=== PATIENT | male | born 1960 ===

== ENCOUNTER 2017-01-13 22:22 | Emergency (ER) | payer OTHER ==
[2017-01-13] MEDS ORDERED: Albuterol-Ipratrop 3 mg / 0.5 (3 ml) UD ONE (22:37)
[2017-01-13] MEDS ORDERED: Albuterol-Ipratrop 3 mg / 0.5 (3 ml) UD INH STA (22:42)
[2017-01-13 23:07] LABS: RBC URINE < 1 /hpf (0-3); URINE BILIRUBIN NEGATIVE (NEGATIVE); URINE BLOOD NEGATIVE (NEGATIVE); URINE COLOR Yellow (YELLOW); URINE GLUCOSE (UA) NORMAL (Normal); URINE KETONE NEGATIVE (NEGATIVE); URINE LEUKOCYTE ESTERASE NEG Leu/uL (Negative); URINE PROTEIN NEGATIVE (NEGATIVE); URINE UROBILINOGEN NORMAL mg/dL (0.2-1.0); WBC URINE 1 /hpf (0-5)
[2017-01-13 23:37] LABS: BASO # 0.1 K/uL (0.0-0.2); EOS # 0.1 K/uL (0.0-0.7); HEMATOCRIT 40.3 % (35.0-51.0); LYMPH # 1.5 K/uL (1.0-4.3); LYMPH % 23.3 % (20.0-40.0); MEAN CORPUSCULAR HEMOGLOBIN 29.8 pg (27.0-31.0); MEAN CORPUSCULAR HGB CONC 33.8 g/dL (33.0-37.0); MEAN PLATELET VOLUME 8.4 fL (7.2-11.7); MONO # 0.4 K/uL (0.0-0.8); RED CELL DISTRIBUTION WIDTH 14.1 % (11.5-14.5); WHITE BLOOD COUNT 6.4 K/uL (4.8-10.8)
[2017-01-13 23:44] LABS: CHLORIDE 106 mmol/L (98-107); POTASSIUM 4.3 mmol/L (3.6-5.2); SODIUM 140 mmol/L (132-148)
[2017-01-13 23:46] LABS: ALB/GLOB RATIO 1.5 (1.0-2.1); ALKALINE PHOSPHATASE 69 U/L (38-126); AST/SGOT 31 U/L (17-59); BILIRUBIN,TOTAL 0.4 mg/dL (0.2-1.3); BLOOD UREA NITROGEN 21 mg/dL (9-20); CARBON DIOXIDE 23 mmol/L (22-30); GFR AFRICAN-AMERICAN > 60; TOTAL PROTEIN 6.7 g/dL (6.3-8.3)
[2017-01-13 23:47] LABS: ALT/SGPT 30 U/L (21-72); CALCIUM 8.5 mg/dl (8.6-10.4); GLUCOSE,RANDOM 130 mg/dL (75-110)
[2017-01-13 23:52] LABS: INR 3.6
[2017-01-14] MEDS ORDERED: Iodixanol 320 MG/ML 100 ML BOTTLE IV ONE (00:41)
--- NOTE | 2017-01-14 00:41 | C.PDOC ---
History Of Present Illness Pt c/p right upper back pain radiating to right chest. Time Seen by Provider: 01/13/17 23:05 Chief Complaint (Nursing): Back Pain History Per: Patient Onset/Duration Of Symptoms: Hrs (since waking up this morning) Current Symptoms Are (Timing): Still Present Quality Of Discomfort: "Pain" Severity: Moderate Exacerbating Factor(s): Turning, Movement, Other (deep breathing) Additional History Per: Prior Records Past Medical History Reviewed: Historical Data, Nursing Documentation, Vital Signs Vital Signs: Last Vital Signs Temp 98.1 F 01/13/17 22:34 Pulse 78 01/13/17 22:34 Resp 21 01/13/17 22:34 BP 121/93 H 01/13/17 22:34 Pulse Ox 97 01/14/17 00:41 - Medical History PMH: Asthma, HTN, Hypercholesterolemia, Kidney Stones Other Surgeries: Mechanical heart valve. Family History: States: Unknown Family Hx - Social History Hx Tobacco Use: No Hx Alcohol Use: No Hx Substance Use: No - Immunization History Hx Tetanus Toxoid Vaccination: Yes Hx Influenza Vaccination: Yes Hx Pneumococcal Vaccination: Yes Review Of Systems Except As Marked, All Systems Reviewed And Found Negative. Constitutional: Negative for: Fever, Weakness Cardiovascular: Positive for: Chest Pain (right) Respiratory: Negative for: Hemoptysis Gastrointestinal: Negative for: Vomiting Genitourinary: Negative for: Dysuria Musculoskeletal: Positive for: Back Pain (right upper). Negative for: Neck Pain , Leg Pain Skin: Negative for: Rash Neurological: Negative for: Weakness, Numbness, Seizures, Altered Mental Status Physical Exam - Physical Exam Appears: Non-toxic, No Acute Distress Skin: Normal Color, Warm, Dry, No Rash Head: Atraumatic, Normacephalic Eye(s): bilateral: PERRL, EOMI Neck: Normal ROM, Supple Cardiovascular: Rhythm Regular Respiratory: Normal Breath Sounds, No Accessory Muscle Use Gastrointestinal/Abdominal: Soft, No Tenderness Back: No CVA Tenderness, No Vertebral Tenderness, Paraspinal Tenderness (right upper) Extremity: Normal ROM, No Pedal Edema, No Calf Tenderness Neurological/Psych: Oriented x3, Normal Motor, Normal Sensation ED Course And Treatment - Laboratory Results Result Diagrams: 01/13/17 23:33 01/13/17 23:33 ECG: Interpreted By Me, Viewed By Me ECG Rhythm: Sinus Rhythm, R BBB, Nonspecific Changes Rate From EC O2 Sat by Pulse Oximetry: 97 Pulse Ox Interpretation: Normal - Radiology CXR: Interpreted by Me, Viewed By Me CXR Interpretation: Yes: No Acute Disease Disposition - Disposition Disposition Time: 00:52 Condition: FAIR - Clinical Impression Clinical Impression: Back pain with radiation Physician Patient Turnover Patient Signed Over To: Saundra Bettencourt Handoff Comments: to f/up CTA of chest and reassess pt.
[2017-01-14 01:54] VITALS: BP 114/71; PULSE 60; RESP 18; TEMP 97.6; O2SAT 96
--- NOTE | 2017-01-14 01:55 | CT ---
EXAM: CT Angiography Chest With Intravenous Contrast CLINICAL HISTORY: 56 years old, male; Pain; Chest pain; Right-sided chest pain; Prior surgery; Surgery date: 6+ months; Additional info: Right chest/back pain, R/O pe. TECHNIQUE: Axial computed tomographic angiography images of the chest with intravenous contrast using pulmonary embolism protocol. This CT exam was performed using one or more of the following dose reduction techniques: automated exposure control, adjustment of the mA and/or kV according to patient size, and/or use of iterative reconstruction technique. MIP reconstructed images were created and reviewed. Coronal and sagittal reformatted images were created and reviewed. CONTRAST: 100 mL of [id number] administered intravenously. COMPARISON: CT - ANGIO CHEST PE PROTOCOL 10/06/2016 1:57:49 AM FINDINGS: Pulmonary arteries: No evidence for acute pulmonary embolism. Aorta: Thoracic aorta is atherosclerotic and tortuous without aneurysm. Lungs: Mild biapical scarring. Mild dependent and bibasilar atelectasis. No mass. Pleural space: Lungs are free of dense consolidation, pleural effusion or pneumothorax. Heart: There is a prosthetic aortic valve. There is minimal coronary artery calcification. The heart is not enlarged. No significant pericardial effusion. No evidence of RV dysfunction. Mediastinum: The esophagus is normal. Thyroid: Thyroid is normal in size and position. Bones/joints: There are sternal wires consistent with previous sternotomy incision. There are mild degenerative changes present. No acute fracture. No dislocation. Soft tissues: Unremarkable. Lymph nodes: There is no axillary adenopathy. No mediastinal or hilar adenopathy. Upper abdomen: Scans through the upper abdomen demonstrate no definite acute abnormalities. IMPRESSION: 1. No evidence for acute pulmonary embolism. 2. Lungs are free of dense consolidation, pleural effusion or pneumothorax.
--- NOTE | 2017-01-14 10:05 | RAD ---
HISTORY: sob, chest pain COMPARISON: 11/25/2016 TECHNIQUE: Chest PA and lateral FINDINGS: LUNGS: Patchy increased markings at the left lung base suggestive for infiltrate and or atelectasis. Diffuse increased interstitial lung markings. Upper lobe granulomatous changes. Small nodular density at the left lung apex. PLEURA: No significant pleural effusion identified. No pneumothorax apparent. CARDIOVASCULAR: Status post median sternotomy. Heart size within normal limits. Prior valve replacement. OSSEOUS STRUCTURES: No significant abnormalities. VISUALIZED UPPER ABDOMEN: Normal. OTHER FINDINGS: None. IMPRESSION: Patchy increased markings at the left lung base suggestive for infiltrate and or atelectasis. Diffuse increased interstitial lung markings. Upper lobe granulomatous changes. Small nodular density at the left lung apex.
--- NOTE | 2017-01-22 14:36 | CARD ---
APPROVED REPORT EKG Measurement Heart [id number] [place] 186P21 [id number] <Conclusion> Normal sinus rhythm Right bundle branch block Lateral infarct, age undetermined Possible Inferior infarct, age undetermined Abnormal ECG
== END 2017-01-14 01:53 | disposition home or self-care (01) ==
LOC: C.ER 22:22
DX: M54.89 Other dorsalgia (principal)
CPT/HCPCS: 71020; 80053; 81001; 83690; 83880; 84484; 85025; 85610; 85730; 94640; 96374; 99284; C9113; Q9967

== ENCOUNTER 2017-01-18 15:11 | Emergency (ER) | payer OTHER ==
[2017-01-18 15:25] VITALS: BMI 28.3
[2017-01-18 15:28] VITALS: TEMP 98.3
--- NOTE | 2017-01-18 16:51 | C.PDOC ---
History Of Present Illness The patient, a 56 y/o male whose PMHx includes Asthma, presents to the ED for evaluation of sore throat, nasal congestion, cough productive of clear sputum which gradually developed over the past 2 days. Patient denies high fever, chills, drooling, chest pain, shortness of breath, wheezing, abd. pain, N/V/D, denies recent travel or sick contact. Ambulate to Ed for evaluation, not in any apparent distress. Time Seen by Provider: 01/18/17 15:28 Chief Complaint (Nursing): Cough, Cold, Congestion History Per: Patient History/Exam Limitations: no limitations Onset/Duration Of Symptoms: Days (2), Gradual Current Symptoms Are (Timing): Still Present Location Of Pain: Throat Associated Symptoms: Cough, Sputum (clear ), Nasal Congestion. denies: Fever, Chills, Nausea, Vomiting, Diarrhea Ear Symptoms: Bilateral: None Additional History Per: Patient Past Medical History Reviewed: Historical Data, Nursing Documentation, Vital Signs Vital Signs: Last Vital Signs Temp 98.3 F 01/18/17 15:26 Pulse 72 01/18/17 16:59 Resp 18 01/18/17 16:59 BP 124/75 01/18/17 16:59 Pulse Ox 100 01/18/17 17:44 - Medical History PMH: Asthma, HTN, Hypercholesterolemia, Kidney Stones, Mitral Valve Prolapse ( replacement), Chronic Kidney Disease Surgical History: CABG Family History: States: Unknown Family Hx - Social History Hx Tobacco Use: No Hx Alcohol Use: No Hx Substance Use: No - Immunization History Hx Tetanus Toxoid Vaccination: Yes Hx Influenza Vaccination: Yes Hx Pneumococcal Vaccination: Yes Review Of Systems Except As Marked, All Systems Reviewed And Found Negative. Constitutional: Negative for: Fever, Chills ENT: Positive for: Nose Congestion, Throat Pain. Negative for: Other (no drooling ) Cardiovascular: Negative for: Chest Pain Respiratory: Positive for: Cough, Sputum (clear ). Negative for: Shortness of Breath, Wheezing Physical Exam - Physical Exam Appears: Well, Non-toxic, No Acute Distress Skin: Normal Color, Warm, Dry, No Rash Eye(s): bilateral: Normal Inspection Nose: Discharge (B/L nasal congestion with scant clear rhinorhea) Oral Mucosa: Moist, No Drooling Throat: Normal, No Erythema, No Exudate, No Drooling Neck: Normal, Normal ROM, Supple Cardiovascular: Rhythm Regular Respiratory: No Decreased Breath Sounds, No Stridor, Wheezing (scattered Right base wheezing, BS equal B/L.) Gastrointestinal/Abdominal: Soft, No Tenderness, No Distention, No Guarding, No Rebound Back: No CVA Tenderness Extremity: Normal ROM, No Pedal Edema, No Deformity Neurological/Psych: Oriented x3, Normal Speech ED Course And Treatment O2 Sat by Pulse Oximetry: 100 (on RA) Pulse Ox Interpretation: Normal Progress Note: Patient received Tessalon Perles PO, Zithromax PO, and prednisone PO. On re-eval, pt is afebrile, hemodynamicaly stable. NOn-toxic. Tolerate Po well in Ed. PulseOx 100% RA. Neck: (-) meningeal sign. ENT: no acute findings. Lungs: CTA B/L, BS equal B/L. ABd: benign. Pt has clinical findings c/w acute bronchitis. Pt advised. ref. to F/u with PMD In 2-3 days for re-eval. return if any new changes. Disposition Counseled Patient/Family Regarding: Diagnosis, Need For Followup, Rx Given - Disposition Referrals: Marisol Murphy MD [Staff Provider] - Disposition: HOME/ ROUTINE Disposition Time: 16:10 Condition: STABLE Additional Instructions: Encourage fluids take medication as prescribed Follow up wit PMD In 2-3 days for re-evaluation. Return to ED if any worsening or new changes. 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 - Scribe Statement The provider has reviewed the documentation as recorded by the Scribe (Cleopatra Galloway) All medical record entries made by the Scribe were at my direction and personally dictated by me. I have reviewed the chart and agree that the record accurately reflects my personal performance of the history, physical exam, medical decision making, and the department course for this patient. I have also personally directed, reviewed, and agree with the discharge instructions and disposition.
[2017-01-18 17:00] VITALS: BP 124/75; PULSE 72; RESP 18
[2017-01-18 17:43] VITALS: O2SAT 100
== END 2017-01-18 17:00 | disposition home or self-care (01) ==
LOC: C.ER 15:11
DX: J40 Bronchitis, not specified as acute or chronic (principal)

== ENCOUNTER 2017-01-20 21:10 | Emergency (ER) | payer OTHER ==
[2017-01-20 21:10] VITALS: BMI 31.4
[2017-01-20 21:21] VITALS: O2SAT 98
--- NOTE | 2017-01-20 21:26 | C.PDOC ---
History Of Present Illness Patient presents to the emergency room with complaints of a nonproductive cough and congestion for a few days. Patient reports that he was given medications at a clinic which have not helped. Patient states that he has been unable to sleep due to the cough. Patient denies fever, chills, nausea, vomiting, diarrhea, or any other complaints. Time Seen by Provider: 01/20/17 21:25 Chief Complaint (Nursing): Cough, Cold, Congestion History Per: Patient History/Exam Limitations: no limitations Onset/Duration Of Symptoms: Days Current Symptoms Are (Timing): Still Present Location Of Pain: None Sick Contacts (Context): None Associated Symptoms: Cough, Nasal Congestion. denies: Fever, Chills, Sputum, Nausea, Vomiting, Diarrhea Ear Symptoms: Bilateral: None Severity: Moderate Pain Scale Rating Of: 4 Recent travel outside of the [place]: No Past Medical History Reviewed: Historical Data, Nursing Documentation, Vital Signs Vital Signs: Last Vital Signs Temp 98.1 F 01/21/17 00:18 Pulse 70 01/21/17 00:18 Resp 18 01/21/17 00:18 BP 139/85 01/21/17 00:18 Pulse Ox 98 01/21/17 00:18 - Medical History PMH: Asthma, HTN, Hypercholesterolemia, Kidney Stones, Mitral Valve Prolapse ( replacement), Chronic Kidney Disease Surgical History: CABG Family History: States: Unknown Family Hx - Social History Hx Tobacco Use: No Hx Alcohol Use: No Hx Substance Use: No - Immunization History Hx Tetanus Toxoid Vaccination: Yes Hx Influenza Vaccination: Yes Hx Pneumococcal Vaccination: Yes Review Of Systems Constitutional: Negative for: Fever, Chills ENT: Positive for: Nose Congestion Respiratory: Positive for: Cough. Negative for: Sputum Gastrointestinal: Negative for: Nausea, Vomiting, Diarrhea Physical Exam - Physical Exam Appears: Non-toxic Skin: Warm, Dry Eye(s): bilateral: Normal Inspection Throat: No Erythema, No Exudate Neck: Normal ROM, No Midline Cervical Tenderness, No Paracervical Tenderness, Supple Cardiovascular: Rhythm Regular Respiratory: Rhonchi (Scattered rhonchi), Wheezing (Diffuse), Other ("Hacking" cough) Gastrointestinal/Abdominal: Soft, No Tenderness, No Guarding, No Rebound Extremity: Normal ROM, No Tenderness Neurological/Psych: Oriented x3, Normal Speech, Normal Cognition ED Course And Treatment - Laboratory Results Result Diagrams: 01/20/17 22:02 01/20/17 22:02 ECG: Interpreted By Me, Viewed By Me ECG Rhythm: Sinus Rhythm (64), R BBB, Nonspecific Changes O2 Sat by Pulse Oximetry: 98 Pulse Ox Interpretation: Normal - Radiology CXR: Interpreted by Me, Viewed By Me CXR Interpretation: Yes: Other (cabg, mvr, unchanged from 01/18/17). No: Infiltrates, Fracture, Pnemothorax Progress Note: blood work, nebs, cxr, Reevaluation Time: 01:08 Reassessment Condition: Improved Medical Decision Making Medical Decision Making: Upon provider reevaluation patient is feeling better, is medically stable, and requires no further treatment in the ED at this time. Patient will be discharged home with Rx for phenergan with codeine . Counseling was provided and all questions were answered regarding diagnosis and need for follow up with the referred clinic. There is agreement to discharge plan. Return if symptoms persist or worsen. Disposition Counseled Patient/Family Regarding: Studies Performed, Diagnosis, Need For Followup, Rx Given - Disposition Referrals: Marisol Murphy MD [Staff Provider] - Disposition: HOME/ ROUTINE Disposition Time: 21:25 Condition: FAIR Additional Instructions: Please return of symptoms recur Prescriptions: Promethazine/Codeine [Codeine/Promethazine 10 MG/5 Ml-6.25 MG/5 Ml] 5 ml PO QID #200 [facility] Instructions: Upper Respiratory Infection (ED) - Clinical Impression Clinical Impression: Upper respiratory infection - Scribe Statement The provider has reviewed the documentation as recorded by the Aiden Arevalo Provider Scribe Attestation: All medical record entries made by the Ermaibsydea were at my direction and personally dictated by me. I have reviewed the chart and agree that the record accurately reflects my personal performance of the history, physical exam, medical decision making, and the department course for this patient. I have also personally directed, reviewed, and agree with the discharge instructions and disposition.
[2017-01-20] MEDS ORDERED: Sodium Chloride 0.9% 1,000 ML IV ONE (21:28)
[2017-01-20] MEDS ORDERED: Promethazine/Cod 6.25mg-10mg/5ml Syr UD PO STA (21:28)
[2017-01-20] MEDS: Albuterol-Ipratrop 3 mg / 0.5 (3 ml) UD IH SCH ×3 (21:30→21:55)
[2017-01-20] MEDS ORDERED: Albuterol-Ipratrop 3 mg / 0.5 (3 ml) UD ONE (21:41)
[2017-01-20] MEDS ORDERED: Promethazine/Cod 6.25mg-10mg/5ml Syr UD ONE (21:41)
[2017-01-20] MEDS ORDERED: Sodium Chloride 0.9% 1,000 ML ONE (21:41)
[2017-01-20 22:04] LABS: BASO % 0.4 % (0.0-2.0); EOS % 0.6 % (0.0-4.0); HEMATOCRIT 40.8 % (35.0-51.0); LYMPH # 1.5 K/uL (1.0-4.3); LYMPH % 17.3 % (20.0-40.0); MEAN CELL VOLUME 88.6 fL (80.0-94.0); MEAN CORPUSCULAR HEMOGLOBIN 29.8 pg (27.0-31.0); MEAN CORPUSCULAR HGB CONC 33.6 g/dL (33.0-37.0); MEAN PLATELET VOLUME 8.4 fL (7.2-11.7); MONO # 0.7 K/uL (0.0-0.8); MONO % 8.1 % (0.0-10.0); RED CELL DISTRIBUTION WIDTH 14.3 % (11.5-14.5); WHITE BLOOD COUNT 8.5 K/uL (4.8-10.8)
[2017-01-20 22:12] LABS: CHLORIDE 105 mmol/L (98-107); SODIUM 137 mmol/L (132-148)
[2017-01-20 22:13] LABS: POTASSIUM 3.4 mmol/L (3.6-5.2)
[2017-01-20 22:15] LABS: ALB/GLOB RATIO 1.4 (1.0-2.1); ALKALINE PHOSPHATASE 76 U/L (38-126); AST/SGOT 37 U/L (17-59); BILIRUBIN,TOTAL 0.3 mg/dL (0.2-1.3); BLOOD UREA NITROGEN 24 mg/dL (9-20); CARBON DIOXIDE 19 mmol/L (22-30); GFR AFRICAN-AMERICAN > 60; TOTAL PROTEIN 6.7 g/dL (6.3-8.3)
[2017-01-20 22:16] LABS: ALT/SGPT 40 U/L (21-72); CALCIUM 8.2 mg/dl (8.6-10.4); GLUCOSE,RANDOM 128 mg/dL (75-110)
[2017-01-21 00:19] VITALS: BP 139/85; PULSE 70; RESP 18; TEMP 98.1
[2017-01-21] MEDS ORDERED: Promethazine/Cod 6.25mg-10mg/5ml Syr UD ONE (01:16)
[2017-01-21] MEDS ORDERED: Promethazine/Cod 6.25mg-10mg/5ml Syr UD PO STA (01:17)
--- NOTE | 2017-01-21 07:26 | RAD ---
HISTORY: SOB COMPARISON: Comparison is made to the previous study dated 01/13/2017 TECHNIQUE: Chest PA and lateral FINDINGS: LUNGS: No evidence of new infiltrate or consolidation in the lungs. PLEURA: No significant pleural effusion identified. No pneumothorax apparent. CARDIOVASCULAR: The cardiac silhouette is mildly enlarged. Post sternotomy changes are again seen. OSSEOUS STRUCTURES: No significant abnormalities. VISUALIZED UPPER ABDOMEN: Normal. OTHER FINDINGS: None. IMPRESSION: No significant interval change compared to the previous exam.
== END 2017-01-21 01:19 | disposition home or self-care (01) ==
LOC: C.ER 21:10
DX: J06.9 Acute upper respiratory infection, unspecified (principal)
CPT/HCPCS: 71020; 80053; 85025; 87040; 94150; 94640; 99283; J7040

== ENCOUNTER 2017-02-09 17:30 | Emergency (ER) | payer OTHER ==
[2017-02-09 18:50] LABS: BASO # 0.1 K/uL (0.0-0.2); BASO % 0.8 % (0.0-2.0); EOS # 0.1 K/uL (0.0-0.7); EOS % 2.1 % (0.0-4.0); HEMATOCRIT 41.8 % (35.0-51.0); LYMPH # 1.8 K/uL (1.0-4.3); LYMPH % 25.5 % (20.0-40.0); MEAN CELL VOLUME 88.2 fL (80.0-94.0); MEAN CORPUSCULAR HEMOGLOBIN 29.5 pg (27.0-31.0); MEAN CORPUSCULAR HGB CONC 33.4 g/dL (33.0-37.0); MEAN PLATELET VOLUME 8.4 fL (7.2-11.7); MONO # 0.6 K/uL (0.0-0.8); MONO % 8.9 % (0.0-10.0); NRBC % 0.1 % (0.0-2.0); RED CELL DISTRIBUTION WIDTH 14.1 % (11.5-14.5); WHITE BLOOD COUNT 6.9 K/uL (4.8-10.8)
[2017-02-09 18:52] LABS: CHLORIDE 101 mmol/L (98-107)
[2017-02-09 18:53] LABS: POTASSIUM 4.3 mmol/L (3.6-5.2); SODIUM 134 mmol/L (132-148)
--- NOTE | 2017-02-09 18:54 | RAD ---
PROCEDURE: CHEST RADIOGRAPH, 1 VIEW HISTORY: chest pain COMPARISON: Comparison chest 01/20/2017 FINDINGS: LUNGS: Poor inspiration with low lung volumes, mild crowded bronchovascular markings and mild bibasilar atelectasis left greater than right PLEURA: No pneumothorax or pleural fluid seen. CARDIOVASCULAR: Sternotomy wires. Cardiomegaly. OSSEOUS STRUCTURES: No significant abnormalities. VISUALIZED UPPER ABDOMEN: Normal. OTHER FINDINGS: None. IMPRESSION: Poor inspiration with low lung volumes, mild crowded bronchovascular markings and mild bibasilar atelectasis left greater than right
[2017-02-09 18:55] LABS: BILIRUBIN,TOTAL 0.7 mg/dL (0.2-1.3); GFR AFRICAN-AMERICAN > 60
[2017-02-09 18:56] LABS: ALB/GLOB RATIO 1.4 (1.0-2.1); ALKALINE PHOSPHATASE 69 U/L (38-126); ALT/SGPT 35 U/L (21-72); AST/SGOT 33 U/L (17-59); BLOOD UREA NITROGEN 19 mg/dL (9-20); CARBON DIOXIDE 25 mmol/L (22-30); GLUCOSE,RANDOM 87 mg/dL (75-110); TOTAL PROTEIN 7.1 g/dL (6.3-8.3)
--- NOTE | 2017-02-09 18:56 | C.PDOC ---
History Of Present Illness The patient, a 56 y/o male, presents to the ED for evaluation of chest pain which began earlier today. Patient states he was helping a neighbor with some heavy lifting (around 25-30 lbs) when he developed a pain to his chest wall which took his breath away. Patient now experiencing pain with movement, chest palpation, and deep breathing. Patient has a PMHx of valve replacement and was advised by his doctor to avoid lifting anything heavier than 25 lbs. Patient denies shortness of breath currently as well as nausea, vomiting, diaphoresis, upper/lower extremity numbness/weakness. Time Seen by Provider: 02/09/17 17:57 Chief Complaint (Nursing): Chest Pain History Per: Patient History/Exam Limitations: no limitations Onset/Duration Of Symptoms: Hrs Current Symptoms Are (Timing): Still Present Quality: "Pain" Associated Symptoms: denies: Nausea, Dyspnea, Diaphoresis, Syncope Exacerbating Factors: Movement, Deep Breathing, Other (+palpation of chest ) Additional History Per: Patient Past Medical History Reviewed: Historical Data, Nursing Documentation, Vital Signs Vital Signs: Last Vital Signs Temp 97.8 F 02/09/17 19:39 Pulse 64 02/09/17 19:39 Resp 20 02/09/17 19:39 BP 128/83 02/09/17 19:39 Pulse Ox 96 02/09/17 19:39 - Medical History PMH: Asthma, HTN, Hypercholesterolemia, Kidney Stones, Mitral Valve Prolapse ( replacement), Chronic Kidney Disease Surgical History: CABG Family History: States: Unknown Family Hx - Social History Hx Tobacco Use: No Hx Alcohol Use: No Hx Substance Use: No - Immunization History Hx Tetanus Toxoid Vaccination: Yes Hx Influenza Vaccination: Yes Hx Pneumococcal Vaccination: Yes Review Of Systems Except As Marked, All Systems Reviewed And Found Negative. Cardiovascular: Positive for: Chest Pain Respiratory: Negative for: Shortness of Breath Gastrointestinal: Negative for: Nausea, Vomiting Neurological: Negative for: Weakness, Numbness Physical Exam - Physical Exam Appears: Non-toxic, No Acute Distress Skin: Normal Color, Warm, Dry Head: Atraumatic, Normacephalic Eye(s): bilateral: Normal Inspection Oral Mucosa: Moist Neck: Normal ROM, Supple Chest: Symmetrical, No Deformity, Tenderness (right chest wall, to anterior ribs below chest ) Cardiovascular: Rhythm Regular, No Murmur, Other (+audible clicking noise ) Respiratory: Normal Breath Sounds, No Rales, No Rhonchi, No Wheezing Back: Normal Inspection, No Vertebral Tenderness, No Paraspinal Tenderness Extremity: Normal ROM, Capillary Refill (less than 2 seconds ) Neurological/Psych: Oriented x3, Normal Speech, Normal Cognition Gait: Steady ED Course And Treatment - Laboratory Results Result Diagrams: 02/09/17 18:41 02/09/17 18:41 Lab Interpretation: Normal ECG: Interpreted By Me ECG Rhythm: R BBB, ST/T Changes (inverted I, AVL, V4-6) ECG Interpretation: No Acute Changes, Abnormal O2 Sat by Pulse Oximetry: 95 (on RA) Pulse Ox Interpretation: Normal - Other Rad CXR X-Ray: Interpreted by Me, Viewed By Me, Read By Radiologist Interpretation: Accession No. : [id number]. Patient Name / ID : KARRIE DANG / [id number]. Exam Date : 02/09/2017 18:31:27 ( Approved ). Study Comment : Sex / Age : M / 56Y. Creator : Chinmay Fisher MD. Dictator : Chinmay Fisher MD. Imaging Science Professor : Taxation Agent : Chinmay Fisher MD. Approver2 : Report Date : 02/09/2017 18:52:26. My Comment : . PROCEDURE: CHEST RADIOGRAPH, 1 VIEW. HISTORY: chest pain. COMPARISON: Comparison chest 01/20/2017. FINDINGS: LUNGS: Poor inspiration with low lung volumes, mild crowded bronchovascular markings and mild bibasilar atelectasis left greater than right. PLEURA: No pneumothorax or pleural fluid seen. CARDIOVASCULAR: Sternotomy wires. Cardiomegaly. OSSEOUS STRUCTURES: No significant abnormalities. VISUALIZED UPPER ABDOMEN: Normal. OTHER FINDINGS: None. IMPRESSION: Poor inspiration with low lung volumes, mild crowded bronchovascular markings and mild bibasilar atelectasis left greater than right Progress Note: labs, CXR, and EKG ordered and reviewed. Patient received Tylenol PO. Reevaluation Time: 19:44 Reassessment Condition: Improved (Patient comfortable and anxious to go home.) Disposition Counseled Patient/Family Regarding: Studies Performed, Diagnosis, Need For Followup, Rx Given - Disposition Referrals: [facility] [Outside] Disposition: HOME/ ROUTINE Disposition Time: 19:46 Condition: IMPROVED Prescriptions: Acetaminophen [Tylenol 325mg tab] 650 mg PO Q4 PRN #120 tab PRN Reason: Pain, Moderate (4-7) Instructions: Musculoskeletal Pain (ED) - Clinical Impression Clinical Impression: Musculoskeletal pain - Scribe Statement The provider has reviewed the documentation as recorded by the Scribe (Cleopatra Galloway) Provider Attestation: All medical record entries made by the Scribe were at my direction and personally dictated by me. I have reviewed the chart and agree that the record accurately reflects my personal performance of the history, physical exam, medical decision making, and the department course for this patient. I have also personally directed, reviewed, and agree with the discharge instructions and disposition.
[2017-02-09 19:40] VITALS: BP 128/83; PULSE 64; RESP 20; TEMP 97.8
[2017-02-09 19:45] VITALS: O2SAT 95
--- NOTE | 2017-02-10 16:44 | CARD ---
APPROVED REPORT EKG Measurement Heart [id number] ME [id number] [id number] <Conclusion> Normal sinus rhythm Right bundle branch block Possible Inferior infarct, age undetermined Anterolateral infarct, age undetermined Abnormal ECG
== END 2017-02-09 19:54 | disposition home or self-care (01) ==
LOC: C.ER 17:30
DX: R07.89 Other chest pain (principal)

== ENCOUNTER 2017-02-24 14:25 | Emergency (ER) | payer OTHER ==
[2017-02-24 14:31] VITALS: BMI 28.3
[2017-02-24] MEDS ORDERED: Aspirin 325 mg EC Tablets PO STA (14:54)
[2017-02-24 15:09] LABS: BASO % 0.6 % (0.0-2.0); EOS # 0.1 K/uL (0.0-0.7); EOS % 1.6 % (0.0-4.0); HEMATOCRIT 40.5 % (35.0-51.0); LYMPH # 1.3 K/uL (1.0-4.3); LYMPH % 19.1 % (20.0-40.0); MEAN CELL VOLUME 87.8 fL (80.0-94.0); MEAN CORPUSCULAR HGB CONC 34.1 g/dL (33.0-37.0); MEAN PLATELET VOLUME 8.2 fL (7.2-11.7); MONO # 0.5 K/uL (0.0-0.8); MONO % 7.1 % (0.0-10.0); RED CELL DISTRIBUTION WIDTH 14.2 % (11.5-14.5); WHITE BLOOD COUNT 6.7 K/uL (4.8-10.8)
[2017-02-24 15:18] LABS: RBC URINE < 1 /hpf (0-3); URINE BILIRUBIN NEGATIVE (NEGATIVE); URINE BLOOD NEGATIVE (NEGATIVE); URINE COLOR Yellow (YELLOW); URINE GLUCOSE (UA) NORMAL (Normal); URINE KETONE NEGATIVE (NEGATIVE); URINE LEUKOCYTE ESTERASE NEG Leu/uL (Negative); URINE PROTEIN 1+ mg/dL (NEGATIVE); URINE UROBILINOGEN NORMAL mg/dL (0.2-1.0); WBC URINE < 1 /hpf (0-5)
[2017-02-24 15:24] LABS: CHLORIDE 105 mmol/L (98-107)
[2017-02-24 15:25] LABS: POTASSIUM 3.9 mmol/L (3.6-5.2); SODIUM 138 mmol/L (132-148)
[2017-02-24 15:27] LABS: ALB/GLOB RATIO 1.4 (1.0-2.1); ALKALINE PHOSPHATASE 62 U/L (38-126); AST/SGOT 32 U/L (17-59); BILIRUBIN,TOTAL 0.8 mg/dL (0.2-1.3); BLOOD UREA NITROGEN 17 mg/dL (9-20); CARBON DIOXIDE 23 mmol/L (22-30); GFR AFRICAN-AMERICAN > 60; TOTAL PROTEIN 6.8 g/dL (6.3-8.3)
[2017-02-24 15:28] LABS: ALCOHOL SERUM < 10 mg/dl (0-10); ALT/SGPT 23 U/L (21-72); CALCIUM 8.2 mg/dl (8.6-10.4); GLUCOSE,RANDOM 129 mg/dL (75-110)
--- NOTE | 2017-02-24 15:46 | RAD ---
PROCEDURE: CHEST RADIOGRAPH, 1 VIEW HISTORY: SOB COMPARISON: 02/09/2017. FINDINGS: LUNGS: Clear. PLEURA: No pneumothorax or pleural fluid seen. CARDIOVASCULAR: Normal. OSSEOUS STRUCTURES: No significant abnormalities. VISUALIZED UPPER ABDOMEN: Normal. OTHER FINDINGS: None. IMPRESSION: No active disease. No acute/significant interval changes. Concordant results with the preliminary interpretation rendered by the emergency department physician procedure.
--- NOTE | 2017-02-24 15:46 | C.PDOC ---
History Of Present Illness 56 y/o male presents to the ED with complains of sudden palpitations, anxiety and impending doom. Pt states symptoms consistent with prior history of panic attacks. PMHx CABG. Denies chest pain, SOB, vomiting or any other complaints. Time Seen by Provider: 02/24/17 14:46 Chief Complaint (Nursing): Chest Pain History Per: Patient History/Exam Limitations: no limitations Onset/Duration Of Symptoms: Mins Current Symptoms Are (Timing): Still Present Severity: Moderate Modifying Factors: None Alleviating Factors: None Recent travel outside of the [place]: No Past Medical History Reviewed: Historical Data, Nursing Documentation, Vital Signs Vital Signs: Last Vital Signs Temp 98.2 F 02/24/17 15:58 Pulse 71 02/24/17 15:58 Resp 17 02/24/17 15:58 BP 127/81 02/24/17 15:58 Pulse Ox 99 02/24/17 15:58 - Medical History PMH: Asthma, HTN, Hypercholesterolemia, Kidney Stones, Mitral Valve Prolapse ( replacement), Chronic Kidney Disease Surgical History: CABG Family History: States: Unknown Family Hx - Social History Hx Tobacco Use: No Hx Alcohol Use: No Hx Substance Use: No - Immunization History Hx Tetanus Toxoid Vaccination: Yes Hx Influenza Vaccination: Yes Hx Pneumococcal Vaccination: Yes Review Of Systems Except As Marked, All Systems Reviewed And Found Negative. Constitutional: Negative for: Fever Cardiovascular: Positive for: Palpitations. Negative for: Chest Pain Gastrointestinal: Negative for: Vomiting Psych: Positive for: Anxiety Physical Exam - Physical Exam Appears: Non-toxic, No Acute Distress, Other (anxious) Skin: Warm, Dry, No Rash Head: Atraumatic, Normacephalic Chest: Symmetrical, Other (midline scar) Cardiovascular: Rhythm Regular, No Murmur Respiratory: Normal Breath Sounds, No Rales, No Rhonchi, No Wheezing Gastrointestinal/Abdominal: Normal Exam, No Soft, No Tenderness Extremity: Bilateral: Atraumatic Neurological/Psych: Oriented x3, No Normal Speech (pressured), Normal Cognition , Other (anxious) ED Course And Treatment - Laboratory Results Result Diagrams: 02/24/17 15:06 02/24/17 15:06 Lab Interpretation: Normal (trop neg.) ECG: Interpreted By Nd ECG Rhythm: Sinus Rhythm, R BBB ECG Interpretation: Normal Rate From EC (BPM) O2 Sat by Pulse Oximetry: 97 (room air) Pulse Ox Interpretation: Normal - Radiology CXR: Interpreted by Me CXR Interpretation: Yes: No Acute Disease Progress Note: asa, xanax Reevaluation Time: 15:45 Reassessment Condition: Improved Medical Decision Making Medical Decision Making: typical panic/anxiety attack LOW susp of ACS Disposition Doctor Will See Patient In The: Office Counseled Patient/Family Regarding: Studies Performed, Diagnosis - Disposition Referrals: [facility] [Outside] [facility] [Outside] Marisol Murphy MD [Staff Provider] - Disposition: HOME/ ROUTINE Disposition Time: 15:46 Condition: GOOD Additional Instructions: follow-up in our outpatient clinic or [facility] for psych eval/ treatment for your anxiety issues. Instructions: Palpitations (ED), Anxiety (ED) - Clinical Impression Clinical Impression: Anxiety, Palpitations - Scribe Statement The provider has reviewed the documentation as recorded by the Ermaibsyeda Tanner Provider Attestation: All medical record entries made by the Ermaibe were at my direction and personally dictated by me. I have reviewed the chart and agree that the record accurately reflects my personal performance of the history, physical exam, medical decision making, and the department course for this patient. I have also personally directed, reviewed, and agree with the discharge instructions and disposition.
[2017-02-24 15:59] VITALS: BP 127/81; PULSE 71; RESP 17; TEMP 98.2
[2017-02-24 16:37] VITALS: O2SAT 97
--- NOTE | 2017-03-02 20:52 | CARD ---
APPROVED REPORT EKG Measurement Heart [id number] <Conclusion> Normal sinus rhythm Right bundle branch block Anterolateral infarct, age undetermined Abnormal ECG
== END 2017-02-24 15:59 | disposition home or self-care (01) ==
LOC: C.ER 14:25
DX: F41.9 Anxiety disorder, unspecified (principal); R00.2 Palpitations

== ENCOUNTER 2017-02-28 20:15 | Emergency (ER) | payer OTHER ==
[2017-02-28 20:16] VITALS: BMI 28.3
--- NOTE | 2017-02-28 21:30 | C.PDOC ---
History Of Present Illness 56 y/o male presents to the ED with complains of swelling and pain to anterior left lower leg. Pt had mechanical fall just MOUNTER HAND. Denies head injury, LOC, vomiting or any other complaints. Time Seen by Provider: 02/28/17 20:55 Chief Complaint (Nursing): Lower Extremity Problem/Injury History Per: Patient History/Exam Limitations: no limitations Onset/Duration Of Symptoms: Hrs Current Symptoms Are (Timing): Still Present Severity: Moderate Recent travel outside of the [place]: No Past Medical History Reviewed: Historical Data, Nursing Documentation, Vital Signs Vital Signs: Last Vital Signs Temp 98.4 F 02/28/17 22:02 Pulse 61 02/28/17 22:02 Resp 16 02/28/17 22:02 BP 128/89 02/28/17 22:02 Pulse Ox 96 02/28/17 22:02 - Medical History PMH: Asthma, HTN, Hypercholesterolemia, Kidney Stones, Mitral Valve Prolapse ( replacement), Chronic Kidney Disease Surgical History: CABG Family History: States: Unknown Family Hx - Social History Hx Tobacco Use: No Hx Alcohol Use: No Hx Substance Use: No - Immunization History Hx Tetanus Toxoid Vaccination: Yes Hx Influenza Vaccination: Yes Hx Pneumococcal Vaccination: Yes Review Of Systems Gastrointestinal: Negative for: Vomiting Musculoskeletal: Positive for: Leg Pain (left lower leg swelling and pain) Physical Exam - Physical Exam Appears: Non-toxic, No Acute Distress Skin: Warm, Dry, No Rash Head: Atraumatic, Normacephalic Chest: Symmetrical, No Tenderness Cardiovascular: Rhythm Regular, No Murmur Respiratory: Normal Breath Sounds, No Rales, No Rhonchi, No Wheezing Gastrointestinal/Abdominal: Normal Exam, Soft, No Tenderness Back: No Vertebral Tenderness, No Paraspinal Tenderness Extremity: Normal ROM, Capillary Refill (<2 seconds), No Deformity, Other ( swelling and tenderness to left anterior middle tib/fib area) Pulses: Left Dorsalis Pedis: Normal Neurological/Psych: Oriented x3, Normal Speech, Normal Motor, Normal Sensation ED Course And Treatment O2 Sat by Pulse Oximetry: 99 (room air) Pulse Ox Interpretation: Normal - Other Rad Tib/fib X-Ray: Interpreted by Me Interpretation: no facture/no lesions Progress Note: Plan: XR tib/fib Disposition - Disposition Disposition: HOME/ ROUTINE Disposition Time: 21:49 Condition: STABLE Additional Instructions: Follow up with your PMD within 1-2 days. Take Tylenol/Motrin as needed for pain. Return to ED if feel worse. 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 - Scribe Statement The provider has reviewed the documentation as recorded by the Scribe Jules Tanner All medical record entries made by the Scribe were at my direction and personally dictated by me. I have reviewed the chart and agree that the record accurately reflects my personal performance of the history, physical exam, medical decision making, and the department course for this patient. I have also personally directed, reviewed, and agree with the discharge instructions and disposition.
[2017-02-28 22:03] VITALS: BP 128/89; PULSE 61; RESP 16; TEMP 98.4
[2017-03-01 02:06] VITALS: O2SAT 99
--- NOTE | 2017-03-01 09:02 | RAD ---
PROCEDURE: Radiographs of the left tibia and fibula. HISTORY: fall COMPARISON: None available. TECHNIQUE: Frontal and lateral views obtained. FINDINGS: BONES: No fracture or destructive lesion. JOINT SPACES: Unremarkable. OTHER FINDINGS: None. IMPRESSION: Unremarkable radiographs of the left tibia and fibula.
== END 2017-02-28 22:11 | disposition home or self-care (01) ==
LOC: C.ER 20:15
DX: S80.12XA Contusion of left lower leg, initial encounter (principal); W18.39XA Other fall on same level, initial encounter; Y92.9 Unspecified place or not applicable

== ENCOUNTER 2017-04-01 13:01 | Emergency (ER) | payer OTHER ==
[2017-04-01 13:05] VITALS: RESP 20; O2SAT 98
--- NOTE | 2017-04-01 13:39 | C.PDOC ---
History Of Present Illness Patient is a 56 year old male who presents to the ER with a complaint of right thigh pain that radiates down leg for the past 3 days. Patient states it is painful with ambulation and worsens when climbing stairs. Patient reports having back pain 2-3 days prior to the leg pain. Patient also notes he is on coumadin due to his mechanical heart valve. Denies recent injury, fever, chills , numbness, or tingling. Time Seen by Provider: 04/01/17 13:08 Chief Complaint (Nursing): Lower Extremity Problem/Injury History Per: Patient History/Exam Limitations: no limitations Onset/Duration Of Symptoms: Days (5) Current Symptoms Are (Timing): Still Present Recent travel outside of the [place]: No Past Medical History Reviewed: Historical Data, Nursing Documentation, Vital Signs Vital Signs: Last Vital Signs Temp 97.5 F L 04/01/17 15:07 Pulse 59 L 04/01/17 15:07 Resp 20 04/01/17 15:07 BP 131/84 04/01/17 15:07 Pulse Ox 98 04/01/17 21:46 - Medical History PMH: Asthma, HTN, Hypercholesterolemia, Kidney Stones, Mitral Valve Prolapse ( replacement), Chronic Kidney Disease Surgical History: CABG Family History: States: Unknown Family Hx - Social History Hx Tobacco Use: No Hx Alcohol Use: No Hx Substance Use: No - Immunization History Hx Tetanus Toxoid Vaccination: Yes Hx Influenza Vaccination: Yes Hx Pneumococcal Vaccination: Yes Review Of Systems Constitutional: Negative for: Fever, Chills Musculoskeletal: Positive for: Back Pain (Right sided), Leg Pain (Right) Neurological: Negative for: Numbness, Other (Tingling) Physical Exam - Physical Exam Appears: Non-toxic, No Acute Distress Skin: Normal Color, Warm, Dry Head: Atraumatic, Normacephalic Oral Mucosa: Moist Gastrointestinal/Abdominal: Soft, No Tenderness Back: Normal Inspection, No Vertebral Tenderness, No Paraspinal Tenderness Extremity: Normal ROM (x4), Tenderness (To right thigh, calf, and ankle. Mild to sciatic notch. ), No Pedal Edema, No Swelling, No Other (Erythema) Pulses: Left Femoral: Normal, Right Femoral: Normal, Left Dorsalis Pedis: Normal , Right Dorsalis Pedis: Normal Neurological/Psych: Oriented x3, Normal Speech, Normal Cognition Gait: Other (Ambulates with limp) ED Course And Treatment O2 Sat by Pulse Oximetry: 98 (Room air) Pulse Ox Interpretation: Normal Progress Note: Blood work ordered. Tylenol administered. Medical Decision Making Medical Decision Making: pt feeling better after Tylenol #3, appears comfortable and walking more at ease. will d/c home with muscle relaxant and tylenol. f/u pmd. Disposition Counseled Patient/Family Regarding: Diagnosis, Need For Followup, Rx Given - Disposition Referrals: [facility] [Outside] Disposition: HOME/ ROUTINE Disposition Time: 15:04 Condition: IMPROVED Additional Instructions: Thank you for letting us take care of you today. Your provider was MORRIS Thompson. You were treated for sciatica. . The emergency medical care you received today was directed at your acute symptoms. If you were prescribed any medication, please fill it and take as directed. It may take several days for your symptoms to resolve. Return to the Emergency Department if your symptoms worsen, do not improve, or if you have any other problems. Please contact your doctor or call one of the physicians/clinics you have been referred to that are listed on the Patient Visit Information form that is included in your discharge packet. Bring any paperwork you were given at discharge with you along with any medications you are taking to your follow up visit. Our treatment cannot replace ongoing medical care by a primary care provider (PCP) outside of the emergency department. Thank you for allowing the [facility] team to be part of your care today. Prescriptions: Acetaminophen [Tylenol 325mg tab] 650 mg PO TID #30 tab Cyclobenzaprine [Cyclobenzaprine HCl] 10 mg PO Q8 #9 tab Instructions: Sciatica (ED) Forms: General Discharge Instructions - Clinical Impression Clinical Impression: Sciatica of right side - Scribe Statement The provider has reviewed the documentation as recorded by the Scribe Dakota Berger All medical record entries made by the Scribe were at my direction and personally dictated by me. I have reviewed the chart and agree that the record accurately reflects my personal performance of the history, physical exam, medical decision making, and the department course for this patient. I have also personally directed, reviewed, and agree with the discharge instructions and disposition.
[2017-04-01] MEDS ORDERED: Acetaminophen-Codeine 300/30 mg Tab PO STA (13:52)
[2017-04-01] MEDS ORDERED: Acetaminophen-Codeine 300/30 mg Tab PO ONE (14:18)
[2017-04-01 14:30] LABS: INR 2.7
[2017-04-01 15:08] VITALS: BP 131/84; PULSE 59; TEMP 97.5
== END 2017-04-01 15:12 | disposition home or self-care (01) ==
LOC: C.ER 13:01
DX: M54.31 Sciatica, right side (principal)

== ENCOUNTER 2017-04-20 18:51 | Emergency (ER) | payer OTHER ==
[2017-04-20 18:57] VITALS: BP 123/88; PULSE 71; RESP 18; TEMP 98.3; O2SAT 97
== END 2017-04-20 18:54 | disposition left against medical advice (07) ==
LOC: C.ER 18:51
DX: K62.5 Hemorrhage of anus and rectum (principal); Z02.9 Encounter for administrative examinations, unspecified

== ENCOUNTER 2017-04-21 18:28 | Inpatient (IN) | payer OTHER ==
--- NOTE | 2017-04-21 19:32 | C.PDOC ---
History Of Present Illness 56 y/o male presents to ED with complaints of rectal bleeding for 4 days. Patient states every time he goes to bathroom he notes bright red blood and has some rectal discomfort. Patient denies fever, chills, n/v/d or any other complaints at this time. Time Seen by Provider: 04/21/17 19:32 Chief Complaint (Nursing): GI Problem History Per: Patient History/Exam Limitations: no limitations Onset/Duration Of Symptoms: Days Current Symptoms Are (Timing): Still Present Associated Symptoms: Rectal Bleeding Past Medical History Reviewed: Historical Data, Nursing Documentation, Vital Signs Vital Signs: Last Vital Signs Temp 98.2 F 04/21/17 19:04 Pulse 76 04/21/17 19:04 Resp 18 04/21/17 19:04 BP 122/72 04/21/17 19:04 Pulse Ox 98 04/21/17 20:03 - Medical History PMH: Asthma, HTN, Hypercholesterolemia, Kidney Stones, Mitral Valve Prolapse ( replacement), Chronic Kidney Disease Surgical History: CABG Family History: States: Unknown Family Hx - Social History Hx Tobacco Use: No Hx Alcohol Use: No Hx Substance Use: No - Immunization History Hx Tetanus Toxoid Vaccination: Yes Hx Influenza Vaccination: Yes Hx Pneumococcal Vaccination: Yes Review Of Systems Constitutional: Negative for: Fever, Chills ENT: Negative for: Throat Pain Cardiovascular: Negative for: Chest Pain Respiratory: Negative for: Shortness of Breath Gastrointestinal: Positive for: Hematochezia, Rectal Pain. Negative for: Nausea , Vomiting, Diarrhea Genitourinary: Negative for: Dysuria Musculoskeletal: Negative for: Back Pain Skin: Negative for: Rash Neurological: Negative for: Weakness Psych: Negative for: Anxiety Physical Exam - Physical Exam Appears: Non-toxic, No Acute Distress Skin: Warm Head: Normacephalic Eye(s): bilateral: Normal Inspection Oral Mucosa: Moist Neck: Trachea Midline, Supple Chest: Symmetrical Cardiovascular: Rhythm Regular Respiratory: No Rales, No Rhonchi, No Wheezing Gastrointestinal/Abdominal: Soft, No Tenderness, No Distention, No Guarding, No Rebound Rectal: Heme Positive, No Hemorrhoids, Other (bright red blood in recta vault) Extremity: No Tenderness Extremity: Bilateral: Atraumatic, Normal Color And Temperature Pulses: Left Dorsalis Pedis: Normal, Right Dorsalis Pedis: Normal Neurological/Psych: Oriented x3, Normal Speech, Normal Cognition Gait: Steady ED Course And Treatment - Laboratory Results Result Diagrams: 04/21/17 20:12 04/21/17 20:00 O2 Sat by Pulse Oximetry: 98 (RA) Pulse Ox Interpretation: Normal Disposition Discussed With DrSoco: Gayatri Galloway Comment: accepted the pt on his service and took over the care at 9:45 PM Counseled Patient/Family Regarding: Studies Performed, Diagnosis - Disposition Disposition: HOSPITALIZED Disposition Time: 19:32 Condition: FAIR - POA Present On Arrival: None - Clinical Impression Clinical Impression: Abdominal pain, GI bleed, Coagulopathy - Scribe Statement The provider has reviewed the documentation as recorded by the Ermaibe Edison Mancuso All medical record entries made by the Ermaibe were at my direction and personally dictated by me. I have reviewed the chart and agree that the record accurately reflects my personal performance of the history, physical exam, medical decision making, and the department course for this patient. I have also personally directed, reviewed, and agree with the discharge instructions and disposition. Decision To Admit - Pt Status Changed To: Hospital Disposition Of: Inpatient - Admit Certification Admit to Inpatient:: After my assessment, the patient will require hospitalization for at least two midnights. This is because of the severity of symptoms shown, intensity of services needed, and/or the medical risk in this patient being treated as an outpatient. - InPatient: Physician Admission Certification: I certify that this patient requires 2 or more midnights of care for the following reason:: After my assessment, the patient will require hospitalization for at least two midnights. This is because of the severity of symptoms shown, intensity of services needed, and/or the medical risk in this patient being treated as an outpatient. - . Bed Request Type: Regular Admitting Physician: Gayatri Galloway Patient Diagnosis: Abdominal pain, GI bleed, Coagulopathy
[2017-04-21] MEDS ORDERED: Pantoprazole 80 MG in Sodium Chloride 0.9% 100 ML IV STA (19:41)
[2017-04-21] MEDS ORDERED: Sodium Chloride 0.9% 1,000 ML IV ONE (19:41)
[2017-04-21] MEDS ORDERED: Sodium Chloride 0.9% 1,000 ML ONE (20:00)
[2017-04-21 20:03] LABS: BASO # 0.1 K/uL (0.0-0.2); BASO % 0.7 % (0.0-2.0); EOS # 0.2 K/uL (0.0-0.7); EOS % 1.9 % (0.0-4.0); HEMOGLOBIN 14.7 g/dL (12.0-18.0); LYMPH # 1.5 K/uL (1.0-4.3); LYMPH % 18.5 % (20.0-40.0); MEAN CELL VOLUME 88.6 fL (80.0-94.0); MEAN CORPUSCULAR HGB CONC 33.8 g/dL (33.0-37.0); MONO # 0.6 K/uL (0.0-0.8); NEUT # 5.7 K/uL (1.8-7.0); NEUT % 70.9 % (50.0-75.0); RBC 4.91 Mil/uL (4.40-5.90); RED CELL DISTRIBUTION WIDTH 14.2 % (11.5-14.5); WHITE BLOOD COUNT 8.1 K/uL (4.8-10.8)
[2017-04-21 20:09] LABS: SQUAMOUS EPITHIAL < 1 /hpf (0-5); URINE BACTERIA RARE (<OCC); URINE BILIRUBIN NEGATIVE (NEGATIVE); URINE BLOOD NEGATIVE (NEGATIVE); URINE CLARITY Clear (Clear); URINE COLOR Yellow (YELLOW); URINE GLUCOSE (UA) NORMAL (Normal); URINE LEUKOCYTE ESTERASE NEG Leu/uL (Negative); URINE NITRATE NEGATIVE (NEGATIVE); URINE PROTEIN 1+ mg/dL (NEGATIVE); URINE UROBILINOGEN NORMAL mg/dL (0.2-1.0)
[2017-04-21 20:12] LABS: ALBUMIN 4.3 g/dL (3.5-5.0)
[2017-04-21 20:14] LABS: GFR AFRICAN-AMERICAN > 60; GFR NON-AFRICAN AMERICAN 57
[2017-04-21 20:15] LABS: ALB/GLOB RATIO 1.4 (1.0-2.1); ALT/SGPT 54 U/L (21-72); AST/SGOT 44 U/L (17-59); BLOOD UREA NITROGEN 14 mg/dL (9-20); CALCIUM 8.8 mg/dl (8.6-10.4)
[2017-04-21 20:16] LABS: INR 4.2
[2017-04-21 20:19] LABS: PROTHROMBIN TIME 49.8 SECONDS (9.7-12.2)
[2017-04-21] MEDS ORDERED: Pantoprazole 80 MG in Sodium Chloride 0.9% 100 ML IVP SCH (22:00)
[2017-04-22 10:49] LABS: BASO # 0.1 K/uL (0.0-0.2); BASO % 0.7 % (0.0-2.0); EOS # 0.1 K/uL (0.0-0.7); EOS % 1.4 % (0.0-4.0); LYMPH # 1.3 K/uL (1.0-4.3); LYMPH % 17.2 % (20.0-40.0); MEAN CELL VOLUME 87.4 fL (80.0-94.0); MEAN CORPUSCULAR HEMOGLOBIN 29.4 pg (27.0-31.0); MEAN CORPUSCULAR HGB CONC 33.6 g/dL (33.0-37.0); MEAN PLATELET VOLUME 7.9 fL (7.2-11.7); MONO # 0.6 K/uL (0.0-0.8); MONO % 8.4 % (0.0-10.0); NEUT # 5.6 K/uL (1.8-7.0); NEUT % 72.3 % (50.0-75.0); NRBC % 0.1 % (0.0-2.0); RBC 4.75 Mil/uL (4.40-5.90); RED CELL DISTRIBUTION WIDTH 13.8 % (11.5-14.5); WHITE BLOOD COUNT 7.7 K/uL (4.8-10.8)
--- NOTE | 2017-04-22 10:55 | CP.PCM.CON ---
<Ashlee Mascorro - Last Filed: 04/22/17 11:26> History of Present Illness - History of Present Illness History of Present Illness: GI Fellow PGY4 Consult Note This is a 56yM with pmhx CAD s/p CABG, HTN, HLD, CKD, Nephrolithiasis, MVP s/p metal valve on OAC warfarin therapy, hx of recurrent rectal bleeding s/p hemorrhoidectomy. Pt pw co of rectal bleeding bright blood mixed in stool for 3 days about 3 BM daily. Pt denies any SOB, CP, blurred vision or dizziness. Pt reports last night had a regular BM with no blood. Denies melena or any bloody emesis. Pt does report constipation and need to strain, does not use stool softeners. Pt reports he took high dose of warfarin 10mg since his INR was low for a few days. On admission INR was 4.2 and Hgb 14, pt was hemodynamically stable, started on IV Protonix drip by primary team. Pt is scheduled for a colonoscopy next month with his GI physician in [facility]. Pt had a colonoscopy and EGD in the past with some polyps removed. ROS: A 12pt ROS was obtained and was negative except as above PmHx; As stated in HPI PSHx: CABG, mitral valve replacement-2008, hemorrhoidectomy, lithotripsy FHx: Dad and sister with valve replacements, mother-healthy; denies Colon cancer SHx: remote use of tobacco as teenager; denies alcohol or illicit drugs Past Patient History - Infectious Disease Hx of Infectious Diseases: None - Past Medical History & Family History Past Medical History?: Yes - Past Social History Smoking Status: Never Smoked - CARDIAC Hx Hypercholesterolemia: Yes Hx Hypertension: Yes Hx Mitral Valve Prolapse: Yes (replacement) - PULMONARY Hx Asthma: Yes - HEENT Hx HEENT Problems: No - RENAL Hx Chronic Kidney Disease: Yes Hx Kidney Stones: Yes - ENDOCRINE/METABOLIC Hx Endocrine Disorders: Yes Hx Diabetes Mellitus Type 2: Yes - HEMATOLOGICAL/ONCOLOGICAL Hx Blood Disorders: No Hx Blood Transfusions: Yes - INTEGUMENTARY Hx Dermatological Problems: No - MUSCULOSKELETAL/RHEUMATOLOGICAL Hx Falls: Yes - GASTROINTESTINAL Hx Gastrointestinal Disorders: Yes Hx Constipation: Yes - GENITOURINARY/GYNECOLOGICAL Hx Genitourinary Disorders: No - PSYCHIATRIC Hx Substance Use: No - SURGICAL HISTORY Hx Coronary Artery Bypass Graft: Yes - ANESTHESIA Hx Anesthesia: Yes Hx Anesthesia Reactions: No Meds Allergies/Adverse Reactions: Allergies Allergy/AdvReac Type Severity Reaction Status Date / Time heparin Allergy Mild RASH Verified 04/20/17 18:57 - Medications Medications: Current Medications Pantoprazole Sodium 80 mg/ (Sodium Chloride) 100 mls @ 10 mls/hr IV .Q10H [facility] PRN Reason: 8 MG/HR Isosorbide Mononitrate (Imdur) 30 mg PO DAILY [facility] Zolpidem Tartrate (Ambien) 5 mg PO HS [facility] Physical Exam - Constitutional Appears: Well, Non-toxic, No Acute Distress - Head Exam Head Exam: ATRAUMATIC, NORMAL INSPECTION - Eye Exam Eye Exam: EOMI, Normal appearance, PERRL Pupil Exam: PERRL - ENT Exam ENT Exam: Mucous Membranes Moist, Normal Exam - Neck Exam Neck exam: Positive for: Full Rom, Normal Inspection - Respiratory Exam Respiratory Exam: Clear to Auscultation Bilateral, NORMAL BREATHING PATTERN - Cardiovascular Exam Cardiovascular Exam: Clicks, RRR, +S1, +S2 - GI/Abdominal Exam GI & Abdominal Exam: Normal Bowel Sounds, Soft. absent: Distended, Guarding, Organomegaly, Tenderness - Rectal Exam Rectal Exam: NORMAL INSPECTION. absent: Black Stool, Bloody Stool, Hemorrhoids Additional comments: Light brown stool, no blood - Extremities Exam Extremities exam: Positive for: full ROM, normal inspection - Back Exam Back exam: NORMAL INSPECTION - Neurological Exam Neurological exam: Alert, Altered, Oriented x3 - Psychiatric Exam Psychiatric exam: Normal Affect, Normal Mood - Skin Skin Exam: Dry, Intact, Normal Color, Warm Results - Vital Signs Recent Vital Signs: Last Vital Signs Temp 97.7 F 04/22/17 07:00 Pulse 57 L 04/22/17 07:00 Resp 20 04/22/17 07:00 BP 135/83 04/22/17 07:00 Pulse Ox 96 04/22/17 07:00 - Labs Result Diagrams: 04/22/17 10:46 04/22/17 10:46 Assessment & Plan - Assessment and Plan (Free Text) Assessment: 1. Rectal Bleeding 2. Supratherapeutic INR 3. MVR metalic on OAC 4. CAD s/p CABG 5. HTN 6. HLD Plan: -Rectal bleeding has resolved with stable Hgb and vitals -No plan for emergent endoscopic evaluation. Pt scheduled for outpt colonoscopy next month. -Discontinue IV Protonix Drip and start regular diet -Primary team should monitor INR with warfarin therapy which is likely contributing to episodes of rectal bleeding, goal INR 2.5-3.5 <ArabMarco Antonio - Last Filed: 04/22/17 13:38> Meds - Medications Medications: Current Medications Isosorbide Mononitrate (Imdur) 30 mg PO DAILY [facility] Last Admin: 04/22/17 10:58 Dose: 30 mg Zolpidem Tartrate (Ambien) 5 mg PO HS [facility] Results - Vital Signs Recent Vital Signs: Last Vital Signs Temp 97.7 F 04/22/17 07:00 Pulse 55 L 04/22/17 10:57 Resp 20 04/22/17 07:00 BP 146/89 04/22/17 10:57 Pulse Ox 96 04/22/17 07:00 - Labs Result Diagrams: 04/22/17 10:46 04/22/17 10:46 Labs: Laboratory Results - last 24 hr 04/22/17 04/22/17 04/22/17 10:46 10:46 10:46 WBC 7.7 RBC 4.75 Hgb 14.0 Hct 41.5 MCV 87.4 MCH 29.4 MCHC 33.6 RDW 13.8 Plt Count 181 MPV 7.9 Neut % (Auto) 72.3 Lymph % (Auto) 17.2 L Luce % (Auto) 8.4 Eos % (Auto) 1.4 Baso % (Auto) 0.7 Neut # 5.6 Lymph # 1.3 Luce # 0.6 Eos # 0.1 Baso # 0.1 PT 65.6 H* D INR 5.4 D Sodium 138 Potassium 3.5 L Chloride 104 Carbon Dioxide 23 Anion Gap 15 BUN 12 Creatinine 1.1 Est GFR ( Amer) > 60 Est GFR (Non-Af Amer) > 60 Random Glucose 97 Calcium 8.4 L Total Bilirubin 0.4 AST 35 ALT 46 Alkaline Phosphatase 104 Total Protein 6.4 Albumin 3.5 Globulin 2.9 Albumin/Globulin Ratio 1.2 Attending/Attestation - Attestation I have personally seen and examined this patient.: Yes I have fully participated in the care of the patient.: Yes I have reviewed all pertinent clinical information: Yes Notes (Text): 04/22/17 13:37 56 year old male with h/o MV replacement on coumadin, h/o constipation and hemorrhoids admitted with supratherapeutic INR and BRBPR. 1. BRBPR 2. Constipation Plan: -bleeding likely hemorrhiodal -hemoglobin is normal -bleeding resolved -recommend bowel regimen with miralax -patient scheduled for outpatient colonoscopy in 1 month already -will sign off -diet as tolerated -ok to discharge from GI standpoint
[2017-04-22 10:58] LABS: ALBUMIN 3.5 g/dL (3.5-5.0); INR 5.4; PROTHROMBIN TIME 65.6 SECONDS (9.7-12.2)
[2017-04-22 11:00] LABS: GFR AFRICAN-AMERICAN > 60; GFR NON-AFRICAN AMERICAN > 60
[2017-04-22 11:01] LABS: ALB/GLOB RATIO 1.2 (1.0-2.1); ALT/SGPT 46 U/L (21-72); AST/SGOT 35 U/L (17-59); BLOOD UREA NITROGEN 12 mg/dL (9-20)
[2017-04-22 11:02] LABS: CALCIUM 8.4 mg/dl (8.6-10.4)
--- NOTE | 2017-04-22 11:07 | CP.PCM.CON ---
Past Patient History - Infectious Disease Hx of Infectious Diseases: None - Past Medical History & Family History Past Medical History?: Yes - Past Social History Smoking Status: Never Smoked - CARDIAC Hx Hypercholesterolemia: Yes Hx Hypertension: Yes Hx Mitral Valve Prolapse: Yes (replacement) - PULMONARY Hx Asthma: Yes - HEENT Hx HEENT Problems: No - RENAL Hx Chronic Kidney Disease: Yes Hx Kidney Stones: Yes - ENDOCRINE/METABOLIC Hx Endocrine Disorders: Yes Hx Diabetes Mellitus Type 2: Yes - HEMATOLOGICAL/ONCOLOGICAL Hx Blood Disorders: No Hx Blood Transfusions: Yes - INTEGUMENTARY Hx Dermatological Problems: No - MUSCULOSKELETAL/RHEUMATOLOGICAL Hx Falls: Yes - GASTROINTESTINAL Hx Gastrointestinal Disorders: Yes Hx Constipation: Yes - GENITOURINARY/GYNECOLOGICAL Hx Genitourinary Disorders: No - PSYCHIATRIC Hx Substance Use: No - SURGICAL HISTORY Hx Coronary Artery Bypass Graft: Yes - ANESTHESIA Hx Anesthesia: Yes Hx Anesthesia Reactions: No Meds Allergies/Adverse Reactions: Allergies Allergy/AdvReac Type Severity Reaction Status Date / Time heparin Allergy Mild RASH Verified 04/20/17 18:57 - Medications Medications: Current Medications Pantoprazole Sodium 80 mg/ (Sodium Chloride) 100 mls @ 10 mls/hr IV .Q10H [facility] PRN Reason: 8 MG/HR Isosorbide Mononitrate (Imdur) 30 mg PO DAILY [facility] Last Admin: 04/22/17 10:58 Dose: 30 mg Zolpidem Tartrate (Ambien) 5 mg PO HS [facility] Results - Vital Signs Recent Vital Signs: Last Vital Signs Temp 97.7 F 04/22/17 07:00 Pulse 55 L 04/22/17 10:57 Resp 20 04/22/17 07:00 BP 146/89 04/22/17 10:57 Pulse Ox 96 04/22/17 07:00 - Labs Result Diagrams: 04/22/17 10:46 04/22/17 10:46 Labs: Laboratory Results - last 24 hr 04/22/17 04/22/17 04/22/17 10:46 10:46 10:46 WBC 7.7 RBC 4.75 Hgb 14.0 Hct 41.5 MCV 87.4 MCH 29.4 MCHC 33.6 RDW 13.8 Plt Count 181 MPV 7.9 Neut % (Auto) 72.3 Lymph % (Auto) 17.2 L [place] % (Auto) 8.4 Eos % (Auto) 1.4 Baso % (Auto) 0.7 Neut # 5.6 Lymph # 1.3 [place] # 0.6 Eos # 0.1 Baso # 0.1 PT 65.6 H* D INR 5.4 D Sodium 138 Potassium 3.5 L Chloride 104 Carbon Dioxide 23 Anion Gap 15 BUN 12 Creatinine 1.1 Est GFR ( Amer) > 60 Est GFR (Non-Af Amer) > 60 Random Glucose 97 Calcium 8.4 L Total Bilirubin 0.4 AST 35 ALT 46 Alkaline Phosphatase 104 Total Protein 6.4 Albumin 3.5 Globulin 2.9 Albumin/Globulin Ratio 1.2
[2017-04-22] MEDS ORDERED: Pantoprazole 80 MG in Sodium Chloride 0.9% 100 ML IV SCH (12:30)
--- NOTE | 2017-04-22 18:07 | CP.PCM.HP ---
Past Patient History - Infectious Disease Hx of Infectious Diseases: None - Past Medical History & Family History Past Medical History?: Yes - Past Social History Smoking Status: Never Smoked - CARDIAC Hx Hypercholesterolemia: Yes Hx Hypertension: Yes - PULMONARY Hx Asthma: Yes - HEENT Hx HEENT Problems: No - RENAL Hx Chronic Kidney Disease: Yes Hx Kidney Stones: Yes - ENDOCRINE/METABOLIC Hx Endocrine Disorders: Yes Hx Diabetes Mellitus Type 2: Yes - HEMATOLOGICAL/ONCOLOGICAL Hx Blood Disorders: No Hx Blood Transfusions: Yes - INTEGUMENTARY Hx Dermatological Problems: No - MUSCULOSKELETAL/RHEUMATOLOGICAL Hx Falls: Yes - GASTROINTESTINAL Hx Gastrointestinal Disorders: Yes Hx Constipation: Yes - GENITOURINARY/GYNECOLOGICAL Hx Genitourinary Disorders: No - PSYCHIATRIC Hx Substance Use: No - SURGICAL HISTORY Hx Coronary Artery Bypass Graft: Yes - ANESTHESIA Hx Anesthesia: Yes Hx Anesthesia Reactions: No Meds Allergies/Adverse Reactions: Allergies Allergy/AdvReac Type Severity Reaction Status Date / Time heparin Allergy Mild RASH Verified 04/20/17 18:57 Physical Exam - Constitutional Appears: Well - Head Exam Head Exam: ATRAUMATIC, NORMAL INSPECTION, NORMOCEPHALIC - Eye Exam Eye Exam: EOMI, Normal appearance, PERRL Pupil Exam: NORMAL ACCOMODATION, PERRL - ENT Exam ENT Exam: Mucous Membranes Moist, Normal Exam - Neck Exam Neck exam: Positive for: Normal Inspection - Respiratory Exam Respiratory Exam: Decreased Breath Sounds - Cardiovascular Exam Cardiovascular Exam: REGULAR RHYTHM, +S1, +S2 - GI/Abdominal Exam GI & Abdominal Exam: Diminished Bowel Sounds, Soft - Rectal Exam Rectal Exam: Deferred Results - Vital Signs Recent Vital Signs: Last Vital Signs Temp 98.2 F 04/22/17 15:14 Pulse 70 04/22/17 15:14 Resp 20 04/22/17 15:14 BP 117/76 04/22/17 15:14 Pulse Ox 96 04/22/17 15:14 - Labs Result Diagrams: 04/22/17 10:46 04/22/17 10:46 Labs: Laboratory Results - last 24 hr 04/22/17 04/22/17 04/22/17 10:46 10:46 10:46 WBC 7.7 RBC 4.75 Hgb 14.0 Hct 41.5 MCV 87.4 MCH 29.4 MCHC 33.6 RDW 13.8 Plt Count 181 MPV 7.9 Neut % (Auto) 72.3 Lymph % (Auto) 17.2 L [place] % (Auto) 8.4 Eos % (Auto) 1.4 Baso % (Auto) 0.7 Neut # 5.6 Lymph # 1.3 [place] # 0.6 Eos # 0.1 Baso # 0.1 PT 65.6 H* D INR 5.4 D Sodium 138 Potassium 3.5 L Chloride 104 Carbon Dioxide 23 Anion Gap 15 BUN 12 Creatinine 1.1 Est GFR ( Amer) > 60 Est GFR (Non-Af Amer) > 60 Random Glucose 97 Calcium 8.4 L Total Bilirubin 0.4 AST 35 ALT 46 Alkaline Phosphatase 104 Total Protein 6.4 Albumin 3.5 Globulin 2.9 Albumin/Globulin Ratio 1.2
[2017-04-22] MEDS ORDERED: Potassium Chloride 20 mEq ER Tab PO STA (23:48)
[2017-04-23 00:09] VITALS: TEMP 97.3
[2017-04-23] MEDS ORDERED: Potassium Chloride 20 mEq ER Tab PO STA (01:17)
[2017-04-23 03:17] LABS: BASO # 0.1 K/uL (0.0-0.2); BASO % 0.7 % (0.0-2.0); EOS # 0.1 K/uL (0.0-0.7); EOS % 1.7 % (0.0-4.0); HEMOGLOBIN 13.9 g/dL (12.0-18.0); LYMPH # 1.4 K/uL (1.0-4.3); LYMPH % 19.3 % (20.0-40.0); MEAN CELL VOLUME 87.8 fL (80.0-94.0); MEAN CORPUSCULAR HEMOGLOBIN 29.3 pg (27.0-31.0); MEAN CORPUSCULAR HGB CONC 33.4 g/dL (33.0-37.0); MEAN PLATELET VOLUME 8.2 fL (7.2-11.7); MONO # 0.5 K/uL (0.0-0.8); MONO % 7.3 % (0.0-10.0); NEUT # 5.1 K/uL (1.8-7.0); RBC 4.73 Mil/uL (4.40-5.90); RED CELL DISTRIBUTION WIDTH 13.8 % (11.5-14.5); WHITE BLOOD COUNT 7.2 K/uL (4.8-10.8)
[2017-04-23 03:38] LABS: ALBUMIN 3.4 g/dL (3.5-5.0)
[2017-04-23 03:40] LABS: GFR AFRICAN-AMERICAN > 60; GFR NON-AFRICAN AMERICAN > 60
[2017-04-23 03:41] LABS: ALB/GLOB RATIO 1.2 (1.0-2.1); ALT/SGPT 42 U/L (21-72); AST/SGOT 31 U/L (17-59); BLOOD UREA NITROGEN 12 mg/dL (9-20); CALCIUM 8.4 mg/dl (8.6-10.4)
[2017-04-23 07:55] VITALS: BP 129/90; PULSE 69; RESP 18; O2SAT 97
[2017-04-23 08:08] LABS: HEMOGLOBIN 14.1 g/dL (12.0-18.0); MEAN CELL VOLUME 86.8 fL (80.0-94.0); MEAN CORPUSCULAR HEMOGLOBIN 29.6 pg (27.0-31.0); MEAN CORPUSCULAR HGB CONC 34.1 g/dL (33.0-37.0); MEAN PLATELET VOLUME 7.9 fL (7.2-11.7); RBC 4.76 Mil/uL (4.40-5.90); RED CELL DISTRIBUTION WIDTH 13.9 % (11.5-14.5); WHITE BLOOD COUNT 8.1 K/uL (4.8-10.8)
[2017-04-23 08:11] LABS: INR 3.7
[2017-04-23 08:52] LABS: PROTHROMBIN TIME 43.9 SECONDS (9.7-12.2)
[2017-04-23] MEDS ORDERED: Potassium Chloride 20 mEq ER Tab PO SCH (10:00)
--- NOTE | 2017-04-23 14:11 | CP.PCM.PN ---
Subjective - Date & Time of Evaluation Date of Evaluation: 04/23/17 Time of Evaluation: 14:00 - Subjective Subjective: clinically same Objective - Vital Signs/Intake and Output Vital Signs (last 24 hours): Temp Pulse Resp BP Pulse Ox 97.3 F L 69 18 129/90 97 04/23/17 07:00 04/23/17 07:00 04/23/17 07:00 04/23/17 07:00 04/23/17 07:00 Intake and Output: 04/23/17 04/23/17 06:59 18:59 Intake Total 800 Balance 800 - Medications Medications: Current Medications Isosorbide Mononitrate (Imdur) 30 mg PO DAILY [facility] Last Admin: 04/23/17 10:06 Dose: 30 mg Potassium Chloride (K-Dur 20 Meq Er Tab) 40 meq PO DAILY [facility] Last Admin: 04/23/17 10:06 Dose: 40 meq Zolpidem Tartrate (Ambien) 5 mg PO HS [facility] Last Admin: 04/22/17 22:20 Dose: 5 mg - Labs Labs: 04/23/17 08:01 04/23/17 03:14 PT 43.9 SECONDS (9.7-12.2) H* D 04/23/17 08:01 INR 3.7 D 04/23/17 08:01 APTT 50 SECONDS (21-34) H 04/21/17 20:17 - Constitutional Appears: Well - Head Exam Head Exam: ATRAUMATIC, NORMAL INSPECTION, NORMOCEPHALIC - Eye Exam Eye Exam: EOMI, Normal appearance, PERRL Pupil Exam: NORMAL ACCOMODATION, PERRL - ENT Exam ENT Exam: Mucous Membranes Moist, Normal Exam - Neck Exam Neck Exam: Full ROM, Normal Inspection. absent: Lymphadenopathy - Respiratory Exam Respiratory Exam: Decreased Breath Sounds - Cardiovascular Exam Cardiovascular Exam: REGULAR RHYTHM, +S1, +S2 - GI/Abdominal Exam GI & Abdominal Exam: Soft, Diminished Bowel Sounds - Rectal Exam Rectal Exam: Deferred
--- NOTE | 2017-04-23 14:20 | CP.PCM.PN ---
Subjective - Date & Time of Evaluation Date of Evaluation: 04/23/17 Time of Evaluation: 14:20 - Subjective Subjective: Alert, orientedx3, NAD. Objective - Vital Signs/Intake and Output Vital Signs (last 24 hours): Temp Pulse Resp BP Pulse Ox 97.3 F L 69 18 129/90 97 04/23/17 07:00 04/23/17 07:00 04/23/17 07:00 04/23/17 07:00 04/23/17 07:00 Intake and Output: 04/23/17 04/23/17 06:59 18:59 Intake Total 800 480 Balance 800 480 - Medications Medications: Current Medications Isosorbide Mononitrate (Imdur) 30 mg PO DAILY [facility] Last Admin: 04/23/17 10:06 Dose: 30 mg Potassium Chloride (K-Dur 20 Meq Er Tab) 40 meq PO DAILY [facility] Last Admin: 04/23/17 10:06 Dose: 40 meq Zolpidem Tartrate (Ambien) 5 mg PO HS [facility] Last Admin: 04/22/17 22:20 Dose: 5 mg - Labs Labs: 04/23/17 08:01 04/23/17 03:14 PT 43.9 SECONDS (9.7-12.2) H* D 04/23/17 08:01 INR 3.7 D 04/23/17 08:01 APTT 50 SECONDS (21-34) H 04/21/17 20:17 Assessment and Plan - Assessment and Plan (Free Text) Assessment: Patient admitted with GI bleed, abnormal INR, seen and examined. INR today is 3.7. Alert and orientedx3, no sob or chest pains, no apparent bleeding. Discussed with florence Lewis discharge home today. Advised to hold coumadin for 2 days. To follow up in the office on Tuesday.
== END 2017-04-23 15:30 | disposition home or self-care (01) | DRG 174 ==
LOC: C.ER 18:28 → C.9E 22:29 → C.6T 04-22 01:02
PROVIDERS: ADMIT Internal Medicine Nephrology; ATTEND Internal Medicine Nephrology
DX: K62.5 Hemorrhage of anus and rectum (principal); T45.515A Adverse effect of anticoagulants, initial encounter; E11.22 Type 2 diabetes mellitus with diabetic chronic kidney disease; D68.32 Hemorrhagic disorder due to extrinsic circulating anticoagulants; N18.9 Chronic kidney disease, unspecified; I12.9 Hypertensive chronic kidney disease with stage 1 through stage 4 chronic kidney disease, or unspecified chronic kidney disease; E78.5 Hyperlipidemia, unspecified; E78.00 Pure hypercholesterolemia, unspecified; I25.10 Atherosclerotic heart disease of native coronary artery without angina pectoris; J45.909 Unspecified asthma, uncomplicated; K59.00 Constipation, unspecified; Z79.01 Long term (current) use of anticoagulants; Z87.442 Personal history of urinary calculi; Z95.1 Presence of aortocoronary bypass graft; Z95.2 Presence of prosthetic heart valve

== ENCOUNTER 2017-05-25 12:39 | Emergency (ER) | payer OTHER ==
[2017-05-25 12:39] VITALS: BMI 26.2
[2017-05-25 12:56] VITALS: BP 142/99; PULSE 78; RESP 18; TEMP 97.9; O2SAT 100
--- NOTE | 2017-05-25 13:19 | C.PDOC ---
History Of Present Illness 56 y/o M p/w medication side effects. Patient states that he was given Tramadol for anxiety at [facility] but states that every time he feels anxious, he takes it, and it makes him feel unwell. He states that he has taken Lorazepam in the past , and it has been much more effective. He also notes L shoulder pain worst when awakening, worse with movement, and without history of trauma. He notes that he sleeps on that shoulder. Time Seen by Provider: 05/25/17 13:00 Chief Complaint (Nursing): Upper Extremity Problem/Injury Past Medical History Vital Signs: Last Vital Signs Temp 97.9 F 05/25/17 12:55 Pulse 78 05/25/17 12:55 Resp 18 05/25/17 12:55 BP 142/99 H 05/25/17 12:55 Pulse Ox 100 05/25/17 13:21 - Medical History PMH: Asthma, HTN, Hypercholesterolemia, Kidney Stones, Mitral Valve Prolapse ( replacement), Chronic Kidney Disease Surgical History: CABG Family History: States: Unknown Family Hx - Social History Hx Tobacco Use: No Hx Alcohol Use: No Hx Substance Use: No - Immunization History Hx Tetanus Toxoid Vaccination: Yes Hx Influenza Vaccination: Yes Hx Pneumococcal Vaccination: Yes Review Of Systems Except As Marked, All Systems Reviewed And Found Negative. Constitutional: Negative for: Fever Cardiovascular: Negative for: Chest Pain Physical Exam - Physical Exam Appears: No Acute Distress Skin: Normal Color Head: Normacephalic Eye(s): bilateral: PERRL Oral Mucosa: Moist Neck: Supple Cardiovascular: Rhythm Regular Respiratory: Normal Breath Sounds Gastrointestinal/Abdominal: Soft, No Tenderness Back: No CVA Tenderness, No Vertebral Tenderness Extremity: No Tenderness (states L upper back feels better when palpated), No Swelling Pulses: Left Radial: Normal, Right Radial: Normal Neurological/Psych: Normal Speech, Normal Cognition, Normal Motor, Normal Sensation Gait: Steady ED Course And Treatment O2 Sat by Pulse Oximetry: 100 Medical Decision Making Medical Decision Making: Informed that tramadol for pain, not for anxiety, and he states he will no longer take it. I reviewed patient's [employer] registry and multiple controlled substances given from clinic. Advised patient to get refills from there for lorazepam. Also advised conservative measures for shoulder. Disposition - Disposition Referrals: Marisol Murphy MD [Staff Provider] - Disposition: HOME/ ROUTINE Disposition Time: 13:19 Condition: STABLE Additional Instructions: Please obtain a refill for your prescription for Lorazepam from Dr. Murphy in clinic. Your registration shows that you have been receiving controlled substances from Dr. Murphy for the last year so further controlled substances can not be prescribed to you from the Emergency Department. Prescriptions: Ibuprofen [Motrin] 600 mg PO Q6 #25 tab Instructions: Anxiety (ED) Forms: [facility] (Estonian) - Clinical Impression Clinical Impression: Anxiety, Shoulder strain
== END 2017-05-25 13:35 | disposition home or self-care (01) ==
LOC: C.ER 12:39
DX: F41.9 Anxiety disorder, unspecified (principal); S46.912A Strain of unspecified muscle, fascia and tendon at shoulder and upper arm level, left arm, initial encounter; X58.XXXA Exposure to other specified factors, initial encounter; Y92.9 Unspecified place or not applicable

== ENCOUNTER 2017-07-29 12:47 | Emergency (ER) | payer OTHER ==
[2017-07-29 12:47] VITALS: BMI 31.2
--- NOTE | 2017-07-29 14:05 | C.PDOC ---
History Of Present Illness 56 y/o male with hx valve replacement on coumadin, c/o itchy rash to scalp for last 3 days. pt also c/o left shoulder pain intermittently for last 4 months, worse when sleeping on left side denies any injury or heavy lifting. pt was at physical therapy today for his back and advised to come to ER for evaluation of left shoulder pain. no fever or chills. no cp or sob. Time Seen by Provider: 07/29/17 13:34 Chief Complaint (Nursing): Abnormal Skin Integrity History Per: Patient Onset/Duration Of Symptoms: Days (3) Location Of Injury: Left: Shoulder (tender), Anterior: Head (rash on scalp) Quality Of Symptoms: Painful, Itching Past Medical History Reviewed: Historical Data, Nursing Documentation, Vital Signs Vital Signs: Last Vital Signs Temp 97.5 F L 07/29/17 14:25 Pulse 70 07/29/17 14:25 Resp 17 07/29/17 14:25 BP 120/82 07/29/17 14:25 Pulse Ox 99 07/29/17 14:25 - Medical History PMH: Asthma, HTN, Hypercholesterolemia, Kidney Stones, Mitral Valve Prolapse ( replacement), Chronic Kidney Disease Other Surgeries: mechanical valve replacement. on coumadin Family History: States: Unknown Family Hx - Social History Hx Tobacco Use: No Hx Alcohol Use: No Hx Substance Use: No - Immunization History Hx Tetanus Toxoid Vaccination: Yes Hx Influenza Vaccination: Yes Hx Pneumococcal Vaccination: Yes Review Of Systems Constitutional: Negative for: Fever, Chills Cardiovascular: Negative for: Chest Pain, Palpitations Respiratory: Negative for: Cough, Shortness of Breath Musculoskeletal: Positive for: Neck Pain, Shoulder Pain Skin: Positive for: Rash (scalp) Neurological: Negative for: Weakness, Numbness Physical Exam - Physical Exam Appears: Non-toxic, Toxic Skin: Warm, Dry, Rash (multiple quarter sized well demarcated scaly patchy areas on scalp, no erythema, warmth or swelling noted. ) Head: Atraumatic, Normacephalic Neck: No Midline Cervical Tenderness, Supple, Other (+left trapzius tenderness with spasm palpated. ) Chest: Symmetrical, No Deformity, No Tenderness Cardiovascular: Rhythm Regular, No Murmur Respiratory: Normal Breath Sounds, No Accessory Muscle Use, No Rales, No Wheezing Back: Normal Inspection, No Vertebral Tenderness Extremity: Other (mild left shoulder tenderness, mild dec rom. ) Pulses: Left Radial: Normal, Right Radial: Normal Neurological/Psych: Oriented x3, Normal Speech, Normal Cognition, Normal Motor, Normal Sensation ED Course And Treatment O2 Sat by Pulse Oximetry: 100 Disposition Counseled Patient/Family Regarding: Diagnosis, Need For Followup, Rx Given - Disposition Referrals: [facility] [Outside] Disposition: HOME/ ROUTINE Disposition Time: 14:00 Condition: STABLE Additional Instructions: Please apply warm compresses to left shoulder several times a day. Take muscle relaxant and Tylenol 3 times a day; do not drive or operate machinery when taking muscle relaxant. Follow up in Medical clinic for further evaluation. Prescriptions: Acetaminophen [Tylenol 325mg tab] 650 mg PO Q6 #30 tab Clotrimazole 1% Cream [Lotrimin 1% CREAM] 1 applic TOP BID #1 tube Cyclobenzaprine [Cyclobenzaprine HCl] 10 mg PO Q8 #9 tab Instructions: Tinea Capitis (ED), Muscle Spasm (ED) Forms: [facility] (Polish), General Discharge Instructions - Clinical Impression Clinical Impression: Tinea capitis, Muscle spasm of left shoulder area
[2017-07-29 14:26] VITALS: BP 120/82; PULSE 70; RESP 17; TEMP 97.5
[2017-07-29 15:50] VITALS: O2SAT 100
== END 2017-07-29 14:37 | disposition home or self-care (01) ==
LOC: C.ER 12:47
DX: B35.0 Tinea barbae and tinea capitis (principal); M62.838 Other muscle spasm

== ENCOUNTER 2017-10-15 10:27 | Emergency (ER) | payer OTHER ==
[2017-10-15 10:27] VITALS: BMI 29.0
[2017-10-15 10:39] VITALS: TEMP 97.7
[2017-10-15 11:51] LABS: BASO # 0.1 K/uL (0.0-0.2); BASO % 1.1 % (0.0-2.0); EOS # 0.1 K/uL (0.0-0.7); EOS % 1.7 % (0.0-4.0); HEMOGLOBIN 14.1 g/dL (12.0-18.0); LYMPH # 1.3 K/uL (1.0-4.3); LYMPH % 20.1 % (20.0-40.0); MEAN CELL VOLUME 88.5 fL (80.0-94.0); MEAN CORPUSCULAR HEMOGLOBIN 31.3 pg (27.0-31.0); MEAN CORPUSCULAR HGB CONC 35.4 g/dL (33.0-37.0); MEAN PLATELET VOLUME 8.2 fL (7.2-11.7); MONO # 0.4 K/uL (0.0-0.8); NEUT # 4.7 K/uL (1.8-7.0); NEUT % 71.1 % (50.0-75.0); RBC 4.49 Mil/uL (4.40-5.90); RED CELL DISTRIBUTION WIDTH 14.2 % (11.5-14.5); WHITE BLOOD COUNT 6.7 K/uL (4.8-10.8)
[2017-10-15 11:59] LABS: INR 1.7; PROTHROMBIN TIME 20.2 SECONDS (9.7-12.2)
[2017-10-15 12:00] LABS: ALB/GLOB RATIO 1.4 (1.0-2.1); ALT/SGPT 53 U/L (21-72); AST/SGOT 39 U/L (17-59); BLOOD UREA NITROGEN 25 mg/dL (9-20); CALCIUM 8.7 mg/dl (8.6-10.4); GFR AFRICAN-AMERICAN > 60; GFR NON-AFRICAN AMERICAN 57
--- NOTE | 2017-10-15 13:25 | C.PDOC ---
History Of Present Illness Patient presents to ED c/o tingling sensation in his right leg earlier today, resolved currrently. Patient has h/o MV replacement (mechanical) currently on Coumadin, HTN, hyperlipidemia, anxiety. He states he recently arrived from [place], was seen in ER ther 3 days ago and his INR was 1.1. Patient instructed to increase Coumdain dose to 15mg daily. He came to ED because he is concerned about his INR level. Patient denies headache, visual changes, extremity weakness, facial droop, slurred speech, gait, changes, palpitations, chest pain. Time Seen by Provider: 10/15/17 11:04 Chief Complaint (Nursing): Lower Extremity Problem/Injury History Per: Patient History/Exam Limitations: no limitations Onset/Duration Of Symptoms: Mins Current Symptoms Are (Timing): Gone Severity: Mild Past Medical History Reviewed: Historical Data, Nursing Documentation, Vital Signs Vital Signs: Last Vital Signs Temp 97.7 F 10/15/17 10:39 Pulse 78 10/15/17 13:38 Resp 16 10/15/17 13:38 BP 128/79 10/15/17 13:38 Pulse Ox 99 10/15/17 15:45 - Medical History PMH: Asthma, HTN, Hypercholesterolemia, Kidney Stones, Mitral Valve Prolapse ( replacement), Chronic Kidney Disease Other Surgeries: mitral valve replacement Family History: States: No Known Family Hx - Social History Hx Tobacco Use: No Hx Alcohol Use: No Hx Substance Use: No - Immunization History Hx Tetanus Toxoid Vaccination: Yes Hx Influenza Vaccination: Yes Hx Pneumococcal Vaccination: Yes Review Of Systems Except As Marked, All Systems Reviewed And Found Negative. Constitutional: Negative for: Fever, Chills Cardiovascular: Negative for: Chest Pain, Palpitations Respiratory: Negative for: Cough, Shortness of Breath Gastrointestinal: Negative for: Nausea, Vomiting, Abdominal Pain, Diarrhea Genitourinary: Negative for: Dysuria, Hematuria Musculoskeletal: Positive for: Other (right leg tingling) Physical Exam - Physical Exam Appears: Well, Non-toxic, No Acute Distress, Other (anxious appearing ) Skin: Normal Color, Warm, Dry Eye(s): bilateral: Normal Inspection, PERRL, EOMI Oral Mucosa: Moist Cardiovascular: Rhythm Regular, Murmur (3/6 holosystolic murmur) Respiratory: Normal Breath Sounds, No Rales, No Rhonchi, No Wheezing Gastrointestinal/Abdominal: Normal Exam, Bowel Sounds, Soft, No Tenderness Extremity: Normal ROM, No Pedal Edema, No Calf Tenderness, Capillary Refill (< 2 sec all digits ) Pulses: Left Dorsalis Pedis: Normal, Right Dorsalis Pedis: Normal Neurological/Psych: Oriented x3, Normal Speech, Normal Cognition, Normal Cranial Nerves, No Cerebellar Signs, Normal Motor, Normal Sensation Gait: Steady ED Course And Treatment - Laboratory Results Result Diagrams: 10/15/17 11:46 10/15/17 11:46 O2 Sat by Pulse Oximetry: 99 (RA) Pulse Ox Interpretation: Normal Progress Note: Blood work ordered and reviewed. Reevaluation Time: 13:35 Reassessment Condition: Improved (On reassessment, patient is resting comfortably, asymptomatic. Patient instructed to take 20mg Coumadin today and tomorrow, then 15mg x 1 week, and then restart his usual dose of 10mg. He understands he should follow up with PMD/clinic in 1-2 days, and should come to ED immediately if he has any concerning symptoms.) Disposition Counseled Patient/Family Regarding: Studies Performed, Diagnosis, Need For Followup - Disposition Referrals: [facility] [Outside] Disposition: HOME/ ROUTINE Disposition Time: 13:25 Condition: STABLE Additional Instructions: TAKE 20MG WARFARIN TODAY AND TOMORROW THEN TAKE 15MG WARFARIN X 1 WEEK THEN GO BACK TO YOUR USUAL 10MG DOSE WARFARIN DAILY FOLLOW UP WITH MEDICAL CLINIC WITHIN 1 WEEK RETURN TO ER IMMEDIATELY IF YOU HAVE ANY CONCERNING SYMPTOMS Forms: [facility] (Namibian) Print Language: EQU[employer]IAL GUINEAN - POA Present On Arrival: None - Clinical Impression Clinical Impression: Subtherapeutic international normalized ratio (INR)
[2017-10-15 13:38] VITALS: BP 128/79; PULSE 78; RESP 16
[2017-10-15 15:41] VITALS: O2SAT 99
--- NOTE | 2017-10-17 15:00 | CARD ---
APPROVED REPORT EKG Measurement Heart [id number] <Conclusion> Normal sinus rhythm Right bundle branch block Lateral infarct, age undetermined Possible Inferior infarct, age undetermined Abnormal ECG
== END 2017-10-15 13:38 | disposition home or self-care (01) ==
LOC: C.ER 10:27
DX: R20.2 Paresthesia of skin (principal); Z79.01 Long term (current) use of anticoagulants

== ENCOUNTER 2017-10-25 11:07 | Emergency (ER) | payer OTHER ==
[2017-10-25 11:07] VITALS: BMI 22.1
[2017-10-25 11:56] LABS: BASO % 0.6 % (0.0-2.0); EOS # 0.1 K/uL (0.0-0.7); EOS % 1.3 % (0.0-4.0); HEMOGLOBIN 14.1 g/dL (12.0-18.0); LYMPH # 1.1 K/uL (1.0-4.3); LYMPH % 18.5 % (20.0-40.0); MEAN CORPUSCULAR HEMOGLOBIN 30.4 pg (27.0-31.0); MEAN CORPUSCULAR HGB CONC 34.1 g/dL (33.0-37.0); MEAN PLATELET VOLUME 8.2 fL (7.2-11.7); MONO # 0.4 K/uL (0.0-0.8); MONO % 6.2 % (0.0-10.0); NEUT # 4.5 K/uL (1.8-7.0); NEUT % 73.4 % (50.0-75.0); NRBC % 0.1 % (0.0-2.0); RBC 4.64 Mil/uL (4.40-5.90); RED CELL DISTRIBUTION WIDTH 13.9 % (11.5-14.5); WHITE BLOOD COUNT 6.1 K/uL (4.8-10.8)
--- NOTE | 2017-10-25 12:02 | C.PDOC ---
History Of Present Illness 56 year old male with Hx of valve replacement presents to the ED c/o pressure like chest pain associated with SOB for the past 2 hours. Patient reports he is currently on Coumadin. Patient denies nausea, vomit, headache, dizziness, back pain, weakness, numbness. Time Seen by Provider: 10/25/17 11:17 Chief Complaint (Nursing): Chest Pain History Per: Patient History/Exam Limitations: no limitations Onset/Duration Of Symptoms: Days Current Symptoms Are (Timing): Still Present Quality: Tightness Modifying Factors: None Exacerbating Factors: None Recent travel outside of the [place]: No Additional History Per: Patient Past Medical History Reviewed: Historical Data, Nursing Documentation, Vital Signs Vital Signs: Last Vital Signs Temp 97.4 F L 10/25/17 11:15 Pulse 61 10/25/17 12:40 Resp 18 10/25/17 12:40 BP 127/85 10/25/17 12:40 Pulse Ox 100 10/25/17 15:00 - Medical History PMH: Asthma, HTN, Hypercholesterolemia, Kidney Stones, Mitral Valve Prolapse ( replacement), Chronic Kidney Disease Surgical History: CABG Family History: States: Unknown Family Hx - Social History Hx Tobacco Use: No Hx Alcohol Use: No Hx Substance Use: No - Immunization History Hx Tetanus Toxoid Vaccination: No Hx Influenza Vaccination: Yes (09/2017) Hx Pneumococcal Vaccination: Yes (2016) Review Of Systems Constitutional: Negative for: Fever, Chills Cardiovascular: Positive for: Chest Pain. Negative for: Palpitations Respiratory: Positive for: Shortness of Breath. Negative for: Cough Gastrointestinal: Negative for: Nausea, Vomiting, Abdominal Pain Musculoskeletal: Negative for: Back Pain Skin: Negative for: Rash Neurological: Negative for: Weakness, Numbness, Headache, Dizziness Physical Exam - Physical Exam Appears: Non-toxic, No Acute Distress Skin: Normal Color, Warm, Dry Head: Atraumatic, Normacephalic Eye(s): bilateral: Normal Inspection Nose: No Discharge, No Deformity Neck: Normal ROM, Supple Chest: Symmetrical Cardiovascular: Rhythm Regular, No Murmur, Other (mechanical valve click auscultated) Respiratory: Normal Breath Sounds, No Rales, No Rhonchi, No Wheezing Gastrointestinal/Abdominal: Soft, No Tenderness, No Guarding, No Rebound Extremity: Normal ROM, No Pedal Edema, No Calf Tenderness, No Deformity, No Swelling Neurological/Psych: Oriented x3, Normal Speech, Normal Cognition Gait: Steady ED Course And Treatment - Laboratory Results Result Diagrams: 10/25/17 11:49 10/25/17 11:49 ECG: Interpreted By Me, Viewed By Me ECG Rhythm: Sinus Rhythm, R BBB, Nonspecific Changes (T wave aversions on aVL, V5 and V6) Interpretation Of ECG: NSR 67 BPM RBBB non specific T wave aversions on leads aVL, V5 and V6. Rate From EC O2 Sat by Pulse Oximetry: 100 (On RA) Pulse Ox Interpretation: Normal - Radiology CXR: Viewed By Me, Read By Radiologist CXR Interpretation: Yes: Other (No acute findings identified. See above.). No: No Acute Disease, Infiltrates - CT Scan/US Chest CTA Other Rad Studies (CT/US): Read By Radiologist, Radiology Report Reviewed CT/US Interpretation: FINDINGS: PULMONARY ARTERIES: There is central filling defect in the left lower lobe pulmonary artery branch (series 2, image 121). There are no filling defects in the central or right pulmonary arteries with. AORTA: There is an aneurysm of the ascending aorta measuring 4.2 x 4.2 cm. LUNGS: The lungs are well inflated. There is dependent atelectasis in the lingula and posterior lower lobes. There are no endobronchial lesions. No focal consolidation. PLEURAL SPACES: No pleural effusions or pneumothorax. HEART: No cardiomegaly. No significant pericardial effusion. Status post CABG. LYMPH NODES: No pathologic lymphadenopathy. BONES, CHEST WALL: Mild multilevel degenerative disc disease. No fracture or destructive lesion. OTHER FINDINGS: The adrenal glands are normal in size. No nephrolithiasis or hydronephrosis. Status post cholecystectomy. There are capsular calcifications in the spleen. IMPRESSION: 1. Findings are most compatible with acute pulmonary embolism in the left lower lobe peripheral pulmonary artery branch. No evidence of central or right pulmonary embolism. 2. Aneurysm of the ascending aorta. Important findings were discussed with Dr. Otto Lynn on 10/25/2017 at 2:43 p.m. Against Medical Advice - AMA Patient Left Against Medical Advice: The patient declines admission to the hospital and wishes to leave the Emergency Department. This action is against my medical advice. This decision was made with informed refusal. The patient was told that admission to the hospital is necessary. Explanation of the reasons why were discussed. The risks of leaving were explained to the patient and include, but are not limited to, worsening of known or currently unknown conditions, permanent disability and from undiagnosed or untreated conditions. The patient has the capacity to make this informed decision and understands my explanation of the current medical problem and risks of leaving. The patient voluntarily accepts these risks and signed an AMA form documenting our conversation. The patient was given the opportunity to ask questions and reconsider. The patient was encouraged to return to the Emergency Department at any time for further care. Medical Decision Making Medical Decision Making: Impression : Chest pain Plan: * EKG * Labs * CXR Patient was told the results of his CT scan, patient state he wishes to leave the hospital and not stay for observation. Patient will sign AMA. Disposition Counseled Patient/Family Regarding: Studies Performed, Diagnosis - Disposition Disposition: AGAINST MEDICAL ADVICE Disposition Time: 15:02 Condition: FAIR Additional Instructions: you are signing out against medical advice and therefore assume responsibility of your care you do not hold myself and staff responsible for potential negative outcome including you state understanding return to ER at any time. Instructions: Pulmonary Embolism (DC), Thoracic Aortic Aneurysm (ED) Forms: [employer] (Yoruba) - Clinical Impression Clinical Impression: Chest pain, Pulmonary embolism - Scribe Statement The provider has reviewed the documentation as recorded by the Scribe Jluis Lambert All medical record entries made by the Scribe were at my direction and personally dictated by me. I have reviewed the chart and agree that the record accurately reflects my personal performance of the history, physical exam, medical decision making, and the department course for this patient. I have also personally directed, reviewed, and agree with the discharge instructions and disposition.
[2017-10-25 12:04] LABS: ALB/GLOB RATIO 1.4 (1.0-2.1); ALT/SGPT 53 U/L (21-72); AST/SGOT 38 U/L (17-59); BLOOD UREA NITROGEN 15 mg/dL (9-20); CALCIUM 8.7 mg/dl (8.6-10.4); GFR AFRICAN-AMERICAN > 60; GFR NON-AFRICAN AMERICAN > 60
[2017-10-25 12:10] LABS: INR 1.2; PROTHROMBIN TIME 13.8 SECONDS (9.7-12.2)
[2017-10-25 12:16] LABS: B-TYPE NATRIURETIC PEPTIDE 225 pg/mL (0-900)
--- NOTE | 2017-10-25 12:21 | RAD ---
HISTORY: chest pain COMPARISON: Chest x-ray performed 08/10/17 TECHNIQUE: Chest, one view. FINDINGS: Examination limited by habitus. LUNGS: Hypoinflation. No focal consolidation. Please note that chest x-ray has limited sensitivity for the detection of pulmonary masses. PLEURA: No significant pleural effusion identified. No definite pneumothorax . CARDIOVASCULAR: Median sternotomy wires. Borderline cardiomegaly. OSSEOUS STRUCTURES: No acute osseous abnormality identified. VISUALIZED UPPER ABDOMEN: Unremarkable. OTHER FINDINGS: None. IMPRESSION: No acute findings identified. See above.
[2017-10-25 12:42] VITALS: PULSE 61; RESP 18
--- NOTE | 2017-10-25 14:46 | CT ---
PROCEDURE: CT Chest with contrast (Pulmonary Angiogram) HISTORY: chest pain COMPARISON: 10/06/2016. TECHNIQUE: Axial computed tomography images were obtained of the chest in the pulmonary arterial phase of enhancement. Coronal and sagittal reformatted images were created and reviewed. Intravenous contrast dose: 100 mL Visipaque 320 Radiation dose: Total exam DLP = 530.03 mGy-cm. This CT exam was performed using one or more of the following dose reduction techniques: Automated exposure control, adjustment of the mA and/or kV according to patient size, and/or use of iterative reconstruction technique. FINDINGS: PULMONARY ARTERIES: There is central filling defect in the left lower lobe pulmonary artery branch (series 2, image 121). There are no filling defects in the central or right pulmonary arteries with AORTA: There is an aneurysm of the ascending aorta measuring 4.2 x 4.2 cm. LUNGS: The lungs are well inflated. There is dependent atelectasis in the lingula and posterior lower lobes. There are no endobronchial lesions. No focal consolidation. PLEURAL SPACES: No pleural effusions or pneumothorax. HEART: No cardiomegaly. No significant pericardial effusion. Status post CABG. LYMPH NODES: No pathologic lymphadenopathy. BONES, CHEST WALL: Mild multilevel degenerative disc disease. No fracture or destructive lesion OTHER FINDINGS: The adrenal glands are normal in size. No nephrolithiasis or hydronephrosis. Status post cholecystectomy. There are capsular calcifications in the spleen. IMPRESSION: 1. Findings are most compatible with acute pulmonary embolism in the left lower lobe peripheral pulmonary artery branch. No evidence of central or right pulmonary embolism. 2. Aneurysm of the ascending aorta. Important findings were discussed with Dr. Otto Lynn on 10/25/2017 at 2:43 p.m.
[2017-10-25 15:12] VITALS: BP 145/89; TEMP 97.8; O2SAT 98
--- NOTE | 2017-10-26 16:23 | CARD ---
APPROVED REPORT EKG Measurement Heart [id number] CT 156P39 [id number] <Conclusion> Normal sinus rhythm Right bundle branch block Lateral infarct, age undetermined Possible Inferior infarct, age undetermined Abnormal ECG
== END 2017-10-25 15:07 | disposition left against medical advice (07) ==
LOC: C.ER 11:07 → C.9E 12:50 → UNDOADMOB 12:50 → C.ER 15:07
DX: I26.99 Other pulmonary embolism without acute cor pulmonale (principal); R07.9 Chest pain, unspecified; I10 Essential (primary) hypertension; E78.00 Pure hypercholesterolemia, unspecified; Z95.2 Presence of prosthetic heart valve

== ENCOUNTER 2018-07-27 13:56 | Emergency (ER) | payer MEDICAID, OTHER ==
[2018-07-27 13:56] VITALS: BMI 22.1
[2018-07-27 14:16] VITALS: BP 110/79; PULSE 81; RESP 22; TEMP 98.5; O2SAT 99
--- NOTE | 2018-07-27 14:43 | C.PDOC ---
History Of Present Illness 57 year old male presents to the ER requesting a refill of his Buspirone. Patient states he is visiting from [place] where he was able to refill it at [facility], however, when he went to [facility] here they did not allow him to refill it. Denies suicidal ideation or homicidal ideation. Time Seen by Provider: 07/27/18 14:25 Chief Complaint (Nursing): Med Refill History Per: Patient History/Exam Limitations: no limitations Onset/Duration Of Symptoms: Days Current Symptoms Are (Timing): Still Present Recent travel outside of the [place]: No Past Medical History Reviewed: Historical Data, Nursing Documentation, Vital Signs Vital Signs: Last Vital Signs Temp 98.5 F 07/27/18 14:12 Pulse 81 07/27/18 14:12 Resp 22 07/27/18 14:12 BP 110/79 07/27/18 14:12 Pulse Ox 99 07/27/18 14:12 - Medical History PMH: Anxiety, Asthma, HTN, Hypercholesterolemia, Kidney Stones, Mitral Valve Prolapse (replacement), Chronic Kidney Disease Surgical History: CABG Family History: States: Unknown Family Hx - Social History Hx Tobacco Use: No Hx Alcohol Use: No Hx Substance Use: No - Immunization History Hx Tetanus Toxoid Vaccination: No Hx Influenza Vaccination: Yes (09/2017) Hx Pneumococcal Vaccination: Yes (2016) Review Of Systems Constitutional: Negative for: Fever, Chills Respiratory: Negative for: Cough Gastrointestinal: Negative for: Nausea, Vomiting Psych: Negative for: Suicidal ideation, Other (Homicidal ideation) Physical Exam - Physical Exam Appears: Non-toxic Skin: Normal Color, Warm, Dry Head: Atraumatic, Normacephalic Eye(s): bilateral: Normal Inspection Oral Mucosa: Moist Chest: Symmetrical, No Tenderness Cardiovascular: Rhythm Regular Respiratory: Normal Breath Sounds, No Rales, No Rhonchi, No Wheezing Gastrointestinal/Abdominal: Soft, No Tenderness Extremity: Normal ROM (x4) Neurological/Psych: Oriented x3, Normal Speech ED Course And Treatment O2 Sat by Pulse Oximetry: 99 (Room air) Pulse Ox Interpretation: Normal Progress Note: Patient is resting comfortably in the ER in no acute distress, vitals are stable, will discharge home with Rx and instructions to follow up with PMD. Disposition - Disposition Disposition: HOME/ ROUTINE Disposition Time: 14:40 Condition: STABLE Additional Instructions: Follow up with your PMD within 1-2 days. Return to ED if feel worse. 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 - Scribe Statement The provider has reviewed the documentation as recorded by the Scribe Dakota Berger All medical record entries made by the Ermaibsyeda were at my direction and personally dictated by me. I have reviewed the chart and agree that the record accurately reflects my personal performance of the history, physical exam, medical decision making, and the department course for this patient. I have also personally directed, reviewed, and agree with the discharge instructions and disposition.
== END 2018-07-27 15:13 | disposition home or self-care (01) ==
LOC: C.ER 13:56
DX: Z76.0 Encounter for issue of repeat prescription (principal)

== ENCOUNTER 2018-08-02 10:52 | Emergency (ER) | payer MEDICAID ==
[2018-08-02 11:00] VITALS: BMI 27.3
[2018-08-02 11:03] VITALS: O2SAT 97
--- NOTE | 2018-08-02 12:23 | C.PDOC ---
History Of Present Illness Patient c/o pain and swelling of penile foreskin started this am. Patient denies dysuria, injury. Time Seen by Provider: 08/02/18 11:59 Chief Complaint (Nursing): Abnormal Skin Integrity History/Exam Limitations: no limitations Onset/Duration Of Symptoms: Days (1) Current Symptoms Are (Timing): Still Present Pain Scale Rating Of: 2 Past Medical History Reviewed: Historical Data, Nursing Documentation, Vital Signs Vital Signs: Last Vital Signs Temp 97.6 F 08/02/18 11:01 Pulse 76 08/02/18 11:01 Resp 18 08/02/18 11:01 BP 139/89 08/02/18 11:01 Pulse Ox 97 08/02/18 11:01 - Medical History PMH: Anxiety, Asthma, HTN, Hypercholesterolemia, Kidney Stones, Mitral Valve Prolapse (replacement), Chronic Kidney Disease Surgical History: CABG Family History: States: Unknown Family Hx - Social History Hx Tobacco Use: No Hx Alcohol Use: No Hx Substance Use: No - Immunization History Hx Tetanus Toxoid Vaccination: No Hx Influenza Vaccination: No (09/2017) Hx Pneumococcal Vaccination: Yes (2016) Review Of Systems Except As Marked, All Systems Reviewed And Found Negative. Physical Exam - Physical Exam Appears: Well, No Acute Distress Skin: Normal Color, No Rash Head: Atraumatic, Normacephalic Eye(s): bilateral: Normal Inspection Gastrointestinal/Abdominal: Soft, No Tenderness Male Genital: No Testicular Tenderness, No Testicular Swelling, No Scrotal Swelling, No Circumcised, Other (mild foreskin erythema and erosion like lesions, no phimosis/paraphimosis) Extremity: Normal ROM Neurological/Psych: Oriented x3, Normal Speech, Normal Cognition ED Course And Treatment O2 Sat by Pulse Oximetry: 97 Progress Note: S/s are consistant with balanitis. FS ordered and reviewed. Patient was d/w home with Urology follow up. Rx given. Disposition - Disposition Referrals: Carlos Tran MD [Staff Provider] - Disposition: HOME/ ROUTINE Disposition Time: 12:22 Condition: STABLE Additional Instructions: Follow up with Urologist within 1-2 days. Return to ED if feel worse. Prescriptions: Cephalexin [Keflex] 500 mg PO Q6 #28 cap Nystatin [Mycostatin Oint] 1 unit TP BID #1 tube Instructions: Balanitis (DC) Forms: [employer] ([place] Citizen) - Clinical Impression Clinical Impression: Beatriz
[2018-08-02 12:37] VITALS: BP 120/84; PULSE 65; RESP 16; TEMP 98.3
== END 2018-08-02 12:42 | disposition home or self-care (01) ==
LOC: C.ER 10:52
DX: N48.1 Balanitis (principal)

== ENCOUNTER 2018-08-09 17:36 | Emergency (ER) | payer MEDICAID ==
[2018-08-09 17:36] VITALS: BMI 27.3
--- NOTE | 2018-08-09 20:22 | C.PDOC ---
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 Patient reports she ate 6 pieces of candy, started walking and became dizzy. Patient reports "my eyes went black". Patient states his dizziness lasted for 10 minutes. He did not pass out. Patient reports he moved from [place] 2 weeks. Patient denies fever, chills, nausea, vomit, CP, SOB, abdominal pain, headache, visual changes, injury, fall, trauma, weakness, numbness. <Denia Escobedo - Last Filed: 08/09/18 22:34> <Shaji Croft - Last Filed: 08/09/18 20:18> History Per: Patient History/Exam Limitations: no limitations Onset/Duration Of Symptoms: Hrs Current Symptoms Are (Timing): Still Present Activity At Onset Of Symptoms: Walking Associated Symptoms Preceding Syncopal Episode: No Predromal Symptoms (Sudden Onset) Seizure Or Post-ictal Symptoms: None Fall Associated With With Symptoms: No Recent travel outside of the [place]: No Additional History Per: Patient <GreggDeniarick Vuong - Last Filed: 08/09/18 22:34> Time Seen by Provider: 08/09/18 19:55 Chief Complaint (Nursing): Dizziness/Lightheaded Past Medical History Vital Signs: Last Vital Signs Temp 97.6 F 08/09/18 18:00 Pulse 66 08/09/18 18:00 Resp 18 08/09/18 18:00 BP 122/80 08/09/18 18:00 Pulse Ox 97 08/09/18 18:00 - Medical History PMH: Anxiety, Asthma, HTN, Hypercholesterolemia, Kidney Stones, Mitral Valve Prolapse (replacement), Chronic Kidney Disease Surgical History: CABG, Coronary Stent Family History: States: Unknown Family Hx - Social History Hx Tobacco Use: No Hx Alcohol Use: No Hx Substance Use: No - Immunization History Hx Tetanus Toxoid Vaccination: Yes Hx Influenza Vaccination: Yes (09/2017) Hx Pneumococcal Vaccination: Yes (2016) <Shaji Croft - Last Filed: 08/09/18 20:18> Reviewed: Historical Data, Nursing Documentation, Vital Signs Vital Signs: Last Vital Signs Temp 97.6 F 08/09/18 18:00 Pulse 66 08/09/18 18:00 Resp 18 08/09/18 18:00 BP 122/80 08/09/18 18:00 Pulse Ox 97 08/09/18 20:22 - Medical History PMH: HTN, Hypercholesterolemia, Kidney Stones, Mitral Valve Prolapse, Chronic Kidney Disease Surgical History: CABG, Coronary Stent Other Surgeries: Mitral valve replacement Family History: States: Unknown Family Hx - Social History Hx Tobacco Use: No Hx Alcohol Use: No Hx Substance Use: No - Immunization History Hx Tetanus Toxoid Vaccination: Yes Hx Influenza Vaccination: Yes Hx Pneumococcal Vaccination: Yes <Denia Escobedo - Last Filed: 08/09/18 22:34> Review Of Systems Constitutional: Negative for: Fever, Chills Eyes: Negative for: Vision Change Cardiovascular: Negative for: Chest Pain, Palpitations Respiratory: Negative for: Cough, Shortness of Breath Gastrointestinal: Negative for: Nausea, Vomiting, Abdominal Pain Skin: Negative for: Rash Neurological: Positive for: Dizziness. Negative for: Weakness, Numbness, Headache <GreggDenia Moorena - Last Filed: 08/09/18 22:34> Physical Exam - Physical Exam Appears: Non-toxic, No Acute Distress Skin: Normal Color, Warm, Dry Head: Atraumatic, Normacephalic Eye(s): bilateral: Normal Inspection, PERRL, EOMI Oral Mucosa: Moist Neck: Normal ROM, Supple, Other (posterior neck endurated non draining area) Chest: Symmetrical Cardiovascular: Rhythm Regular, Other (mechanical click) Respiratory: Normal Breath Sounds, No Rales, No Rhonchi, No Wheezing Gastrointestinal/Abdominal: Soft, No Tenderness, No Guarding, No Rebound Extremity: Normal ROM, No Tenderness, No Swelling Neurological/Psych: Oriented x3, Normal Speech, Normal Cognition Gait: Steady <GreggDenia Vuong - Last Filed: 08/09/18 22:34> ED Course And Treatment O2 Sat by Pulse Oximetry: 97 <Shaji Croft - Last Filed: 08/09/18 20:18> - Laboratory Results Result Diagrams: 08/09/18 21:26 08/09/18 21:26 Lab Interpretation: Normal ECG: Interpreted By Wi ECG Rhythm: Sinus Rhythm, R BBB (with old lateral and inferior infarcts.) ECG Interpretation: No Acute Changes O2 Sat by Pulse Oximetry: 97 (ON RA) Pulse Ox Interpretation: Normal Reevaluation Time: 22:33 Reassessment Condition: Improved (Patient feels well and is without symptoms at this time.) <Denia Escobedo - Last Filed: 08/09/18 22:34> Medical Decision Making Medical Decision Making: Plan: * Labs * EKG <Denia Escobedo - Last Filed: 08/09/18 22:34> Disposition <Shaji Croft - Last Filed: 08/09/18 20:18> Counseled Patient/Family Regarding: Studies Performed, Diagnosis, Need For Followup - Disposition Disposition Time: 22:33 <Denia Escobedo - Last Filed: 08/09/18 22:34> - Disposition Referrals: [facility] [place] [Outside] Disposition: HOME/ ROUTINE Condition: IMPROVED Instructions: Dizziness, Nonvertigo, (DC) Forms: [employer] (Croatian) - Clinical Impression Clinical Impression: Dizziness - Scribe Statement The provider has reviewed the documentation as recorded by the Scribe Jluis Lambert All medical record entries made by the Scribe were at my direction and personally dictated by me. I have reviewed the chart and agree that the record accurately reflects my personal performance of the history, physical exam, medical decision making, and the department course for this patient. I have also personally directed, reviewed, and agree with the discharge instructions and disposition. <Denia Escobedo - Last Filed: 08/09/18 22:34>
[2018-08-09 21:40] LABS: BASO % 0.6 % (0.0-2.0); EOS # 0.2 K/uL (0.0-0.7); EOS % 2.3 % (0.0-4.0); HEMOGLOBIN 13.7 g/dL (12.0-18.0); LYMPH # 1.8 K/uL (1.0-4.3); LYMPH % 26.6 % (20.0-40.0); MEAN CELL VOLUME 88.2 fL (80.0-94.0); MEAN CORPUSCULAR HEMOGLOBIN 30.2 pg (27.0-31.0); MEAN CORPUSCULAR HGB CONC 34.2 g/dL (33.0-37.0); MONO # 0.6 K/uL (0.0-0.8); MONO % 8.3 % (0.0-10.0); NEUT # 4.1 K/uL (1.8-7.0); NEUT % 62.2 % (50.0-75.0); NRBC % 0.1 % (0.0-2.0); RBC 4.52 Mil/uL (4.40-5.90); RED CELL DISTRIBUTION WIDTH 14.9 % (11.5-14.5); WHITE BLOOD COUNT 6.7 K/uL (4.8-10.8)
[2018-08-09 21:44] LABS: ALB/GLOB RATIO 1.5 (1.0-2.1); ALBUMIN 4.1 g/dL (3.5-5.0); ALT/SGPT 50 U/L (21-72); AST/SGOT 43 U/L (17-59); BLOOD UREA NITROGEN 15 mg/dL (9-20); GFR NON-AFRICAN AMERICAN > 60
[2018-08-09 21:47] VITALS: TEMP 98.1
[2018-08-09 21:52] LABS: BARBITURATES, UR NEGATIVE (NEGATIVE); BENZODIAZEPINES, UR NEGATIVE (NEGATIVE); OPIATES, UR NEGATIVE (NEGATIVE)
[2018-08-09 22:20] LABS: PHENCYCLIDINE, UR NEGATIVE (NEGATIVE)
[2018-08-09 22:57] VITALS: BP 142/84; PULSE 86; RESP 18; O2SAT 95
--- NOTE | 2018-08-10 21:40 | CARD ---
APPROVED REPORT Date of service: 08/09/2018 EKG Measurement Heart [id number] RI 170P23 [id number] <Conclusion> Normal sinus rhythm Right bundle branch block Lateral infarct, age undetermined Possible Inferior infarct, age undetermined Abnormal ECG
== END 2018-08-09 22:45 | disposition home or self-care (01) ==
LOC: C.ER 17:36
DX: R42 Dizziness and giddiness (principal)

== ENCOUNTER 2018-08-27 11:37 | Emergency (ER) | payer MEDICAID ==
[2018-08-27 11:38] VITALS: BMI 27.3
[2018-08-27 12:12] VITALS: O2SAT 97
--- NOTE | 2018-08-27 13:24 | C.PDOC ---
History Of Present Illness 57 y/o male, with history of questionable stroke, HTN, and mechanical valve replacement, presents to ED after passing out earlier today for 2 minutes. Patient states he felt mild dizziness before syncope. Before syncope, patient was sitting and eating salty food. Patient notes he feels better currently and denies chest pain, heartburn, or any other complaints. Pt was seen here in ER before for near syncope on 08/09/18. PMHx of mechanical valve replacement, HTM, questionable stroke SEEN 08/09/18 IN ER FOR NEAR SYNCOPE Time Seen by Provider: 08/27/18 13:22 Chief Complaint (Nursing): Syncope History Per: Patient History/Exam Limitations: no limitations Onset/Duration Of Symptoms: Hrs Current Symptoms Are (Timing): Still Present Past Medical History Reviewed: Historical Data, Nursing Documentation, Vital Signs Vital Signs: Last Vital Signs Temp 97.9 F 08/27/18 12:08 Pulse 73 08/27/18 12:08 Resp 20 08/27/18 12:08 BP 134/92 H 08/27/18 12:08 Pulse Ox 97 08/27/18 12:08 - Medical History PMH: Anxiety, Asthma, HTN, Hypercholesterolemia, Kidney Stones, Mitral Valve Prolapse, Chronic Kidney Disease Surgical History: CABG, Coronary Stent Family History: States: No Known Family Hx - Social History Hx Tobacco Use: No Hx Alcohol Use: No Hx Substance Use: No - Immunization History Hx Tetanus Toxoid Vaccination: Yes Hx Influenza Vaccination: Yes Hx Pneumococcal Vaccination: Yes Review Of Systems Except As Marked, All Systems Reviewed And Found Negative. Constitutional: Negative for: Fever Cardiovascular: Negative for: Chest Pain Respiratory: Negative for: Shortness of Breath Gastrointestinal: Negative for: Nausea, Vomiting Neurological: Positive for: Dizziness Psych: Positive for: Other (LOC) Physical Exam - Physical Exam Appears: Non-toxic, No Acute Distress Skin: Warm, Dry Head: Atraumatic, Normacephalic Eye(s): bilateral: Normal Inspection Oral Mucosa: Moist Neck: Supple Cardiovascular: Rhythm Regular, No Murmur Respiratory: Normal Breath Sounds, No Rales, No Rhonchi, No Wheezing Extremity: No Pedal Edema Extremity: Bilateral: Atraumatic, Normal Color And Temperature Neurological/Psych: Oriented x3, Normal Speech, Normal Motor, Normal Sensation Gait: Steady ED Course And Treatment ECG: Interpreted By Me ECG Rhythm: Sinus Rhythm, R BBB ECG Interpretation: No Acute Changes Rate From EC O2 Sat by Pulse Oximetry: 97 (RA) Pulse Ox Interpretation: Normal - Radiology CXR: Interpreted by Me Progress - Re-Evaluation Re-evaluation Note: 08/27/18 14:13 The patient declines admission to the hospital and wishes to leave the Emergency Department. This action is against my medical advice. This decision was made with informed refusal. The patient was told that admission to the hospital is necessary. Explanation of the reasons why were discussed. The risks of leaving were explained to the patient and include, but are not limited to, worsening of known or currently unknown conditions, permanent disability and from undiagnosed or untreated conditions. The patient has the capacity to make this informed decision and understands my explanation of the current medical problem and risks of leaving. The patient voluntarily accepts these risks and signed an AMA form documenting our conversation. The patient was given the opportunity to ask questions and reconsider. The patient was encouraged to return to the Emergency Department at any time for further care. - Data Reviewed Data Reviewed: Lab, Diagnostic imaging, EKG, Old records Disposition Counseled Patient/Family Regarding: Studies Performed, Diagnosis, Need For Followup - Disposition Referrals: YOUR,PMD [Other] Disposition: AGAINST MEDICAL ADVICE Disposition Time: 14:03 Condition: GOOD Prescriptions: Carvedilol [Coreg] 3.125 mg PO BID #60 tab Instructions: Syncope (Fainting) (DC), Leaving Against Medical Advice Forms: [employer] (Tamazight) - Clinical Impression Clinical Impression: Syncope - Scribe Statement The provider has reviewed the documentation as recorded by the Aiden Davila Provider Attestation: All medical record entries made by the Aiden were at my direction and personally dictated by me. I have reviewed the chart and agree that the record accurately reflects my personal performance of the history, physical exam, medical decision making, and the department course for this patient. I have also personally directed, reviewed, and agree with the discharge instructions and disposition.
[2018-08-27 14:42] VITALS: BP 130/90; PULSE 70; RESP 18; TEMP 97.5
--- NOTE | 2018-08-30 17:56 | CARD ---
APPROVED REPORT Date of service: 08/27/2018 EKG Measurement Heart [id number] [place] [id number] [id number] <Conclusion> Normal sinus rhythm Right bundle branch block Possible Inferior infarct, age undetermined Anterolateral infarct, age undetermined Abnormal ECG
== END 2018-08-27 14:05 | disposition left against medical advice (07) ==
LOC: C.ER 11:37
DX: R55 Syncope and collapse (principal); E78.00 Pure hypercholesterolemia, unspecified; I12.9 Hypertensive chronic kidney disease with stage 1 through stage 4 chronic kidney disease, or unspecified chronic kidney disease; N18.9 Chronic kidney disease, unspecified

== ENCOUNTER 2018-09-03 12:07 | Emergency (ER) | payer MEDICAID ==
[2018-09-03 12:07] VITALS: BMI 27.3
[2018-09-03 12:13] VITALS: BP 126/85; PULSE 84; RESP 18; TEMP 97.8; O2SAT 98
--- NOTE | 2018-09-03 12:23 | C.PDOC ---
History Of Present Illness 57 year old male presents to the ED requesting Pravastatin refill for 2 weeks. Reports he is visiting from another state and ran out of medications. Notes he leaves back to his home state in 2 weeks and will need medication for the remaining time. Denies any physical complaints. Time Seen by Provider: 09/03/18 12:16 Chief Complaint (Nursing): Med Refill History Per: Patient History/Exam Limitations: no limitations Past Medical History Reviewed: Historical Data, Nursing Documentation, Vital Signs Vital Signs: Last Vital Signs Temp 97.8 F 09/03/18 12:11 Pulse 84 09/03/18 12:11 Resp 18 09/03/18 12:11 BP 126/85 09/03/18 12:11 Pulse Ox 98 09/03/18 12:11 - Medical History PMH: Anxiety, Asthma, HTN, Hypercholesterolemia, Kidney Stones, Mitral Valve Prolapse, Chronic Kidney Disease Surgical History: CABG, Coronary Stent Family History: States: No Known Family Hx - Social History Hx Tobacco Use: No Hx Alcohol Use: No Hx Substance Use: No - Immunization History Hx Tetanus Toxoid Vaccination: Yes Hx Influenza Vaccination: Yes Hx Pneumococcal Vaccination: Yes Review Of Systems Except As Marked, All Systems Reviewed And Found Negative. Constitutional: Negative for: Fever, Chills Physical Exam - Physical Exam Appears: Non-toxic, No Acute Distress Skin: Warm, Dry Head: Normacephalic Eye(s): bilateral: Normal Inspection Nose: Normal Oral Mucosa: Moist Neck: Normal ROM, Supple Chest: Symmetrical Cardiovascular: Rhythm Regular Respiratory: Normal Breath Sounds, No Rales, No Rhonchi, No Wheezing Gastrointestinal/Abdominal: Soft, No Tenderness Extremity: Bilateral: Atraumatic, Normal Color And Temperature, Normal ROM Neurological/Psych: Oriented x3, Normal Speech Gait: Steady ED Course And Treatment O2 Sat by Pulse Oximetry: 98 (RA) Pulse Ox Interpretation: Normal Medical Decision Making Medical Decision Making: Patient given Rx for Pravastatin. Patient ready and stable for discharge. Disposition Counseled Patient/Family Regarding: Studies Performed, Diagnosis, Need For Followup, Rx Given - Disposition Referrals: [facility] [Outside] [facility] [Outside] Disposition: HOME/ ROUTINE Disposition Time: 12:20 Condition: STABLE Additional Instructions: FOLLOW UP WITH YOUR PMD IN 2 WKS FOR RE-EVALUATION. IF ANY CONCERNING SYMPTOMS DEVELOP RETURN TO ED. Prescriptions: Pravastatin Sodium [Pravachol] 20 mg PO HS #15 tab Forms: [facility] (Lebanese), General Discharge Instructions - Clinical Impression Clinical Impression: Medication refill - PA / [employer]ER / Resident Statement MD/DO has reviewed & agrees with the documentation as recorded. - Scribe Statement The provider has reviewed the documentation as recorded by the Scribe Anahi Rosa All medical record entries made by the Ermaibsyeda were at my direction and personally dictated by me. I have reviewed the chart and agree that the record accurately reflects my personal performance of the history, physical exam, medical decision making, and the department course for this patient. I have also personally directed, reviewed, and agree with the discharge instructions and disposition.
== END 2018-09-03 12:28 | disposition home or self-care (01) ==
LOC: C.ER 12:07
DX: Z76.0 Encounter for issue of repeat prescription (principal); E78.00 Pure hypercholesterolemia, unspecified

== ENCOUNTER 2018-12-16 14:52 | Emergency (ER) | payer MEDICAID ==
[2018-12-16 14:53] VITALS: BMI 27.3
[2018-12-16 15:00] VITALS: BP 135/86; PULSE 73; RESP 16; TEMP 98; O2SAT 99
--- NOTE | 2018-12-16 16:16 | C.PDOC ---
History Of Present Illness 58 y/o male, with history of asthma, CKD, anxiety, hypertension, and hypercholesterolemia, presents to ED for medical evaluation of cough x2 days, associated with SOB, sore throat, headache, and nasal congestion. He states that he took some old antibiotics that was previously prescribed to him in [place] a month ago when he was sick with a cough and uses his inhaler without much relief. Also reports taking Vicks with little relief. Denies any fever, chills, chest pain, nausea, vomiting, and abdominal pain. Chief Complaint (Nursing): Cough, Cold, Congestion History Per: Patient History/Exam Limitations: no limitations Onset/Duration Of Symptoms: Days Current Symptoms Are (Timing): Still Present Past Medical History Reviewed: Historical Data, Nursing Documentation, Vital Signs Vital Signs: Last Vital Signs Temp 98 F 12/16/18 14:58 Pulse 73 12/16/18 14:58 Resp 16 12/16/18 14:58 BP 135/86 12/16/18 14:58 Pulse Ox 99 12/16/18 14:58 - Medical History PMH: Anxiety, Asthma, HTN, Hypercholesterolemia, Kidney Stones, Mitral Valve Prolapse, Chronic Kidney Disease Surgical History: CABG, Coronary Stent Family History: States: No Known Family Hx - Social History Hx Tobacco Use: No Hx Alcohol Use: No Hx Substance Use: No - Immunization History Hx Tetanus Toxoid Vaccination: Yes Hx Influenza Vaccination: Yes Hx Pneumococcal Vaccination: Yes Review Of Systems ENT: Positive for: Nose Congestion, Throat Pain (sore throat) Cardiovascular: Negative for: Chest Pain Respiratory: Positive for: Cough, Shortness of Breath Gastrointestinal: Negative for: Nausea, Vomiting, Abdominal Pain Neurological: Positive for: Headache Physical Exam - Physical Exam Appears: Non-toxic, No Acute Distress Skin: Warm, Dry Head: Atraumatic, Normacephalic Eye(s): bilateral: Normal Inspection Ear(s): Bilateral: TM Obscured By Wax Oral Mucosa: Moist Throat: Erythema, No Exudate Neck: Supple Cardiovascular: Rhythm Regular, No Murmur Respiratory: Normal Breath Sounds, No Rales, No Rhonchi, No Wheezing Gastrointestinal/Abdominal: Soft, No Tenderness, No Guarding, No Rebound Extremity: No Pedal Edema Extremity: Bilateral: Atraumatic, Normal Color And Temperature, Normal ROM Neurological/Psych: Oriented x3, Normal Speech ED Course And Treatment O2 Sat by Pulse Oximetry: 99 (RA) Pulse Ox Interpretation: Normal - Other Rad CXR X-Ray: Read By Radiologist Interpretation: Findings: Mild venous congestion. Status post median sternotomy. Tortuous aorta. Mild cardiomegaly. Valve replacement. Degenerative changes in the spine and shoulders. Impression: Mild venous congestion. Status post median sternotomy. Tortuous aorta. Mild cardiomegaly. Valve replacement. Degenerative changes in the spine and shoulders. Medical Decision Making Medical Decision Making: Plan: --Chest XR -- Tessalon Perles and Augmentin given Continue Tessalon Perles three times a day for cough Continue Augmentin twice a day for 7 days Patient verbalizes understanding and is in agreement with plan. Patient is stable for discharge. Disposition - Disposition Referrals: [facility] [Outside] Disposition: HOME/ ROUTINE Disposition Time: 16:48 Condition: STABLE Additional Instructions: Continue Tessalon Perles three times a day for cough Start Augmentin twice a day for 7 days Follow up with PMD/ clinic in 1-2 days Return to ED if symptoms worsen Prescriptions: Amoxicillin/Clavulanate [Augmentin 875 MG-125 MG] 1 tab PO BID #14 tab Benzonatate [Tessalon Perles] 100 mg PO TID #30 sgl Instructions: Sore Throat, Adult (DC), Bacterial Upper Respiratory Infection, Adult (DC) Forms: [employer] (Romansh) - Clinical Impression Clinical Impression: Cough, Pharyngitis - 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 - Scribe Statement The provider has reviewed the documentation as recorded by the Ermaibsyeda Davila All medical record entries made by the Scribe were at my direction and personally dictated by me. I have reviewed the chart and agree that the record accurately reflects my personal performance of the history, physical exam, medical decision making, and the department course for this patient. I have also personally directed, reviewed, and agree with the discharge instructions and disposition.
--- NOTE | 2018-12-16 16:16 | RAD ---
Chest x-ray two views HISTORY: Shortness of breath. Comparison: 06/25/2018 Findings: Mild venous congestion. Status post median sternotomy. Tortuous aorta. Mild cardiomegaly. Valve replacement. Degenerative changes in the spine and shoulders. Impression: Mild venous congestion. Status post median sternotomy. Tortuous aorta. Mild cardiomegaly. Valve replacement. Degenerative changes in the spine and shoulders.
--- NOTE | 2018-12-16 16:25 | C.PDOC ---
Chief Complaint (Nursing): Cough, Cold, Congestion Past Medical History Reviewed: Historical Data, Nursing Documentation, Vital Signs Vital Signs: Last Vital Signs Temp 98 F 12/16/18 14:58 Pulse 73 12/16/18 14:58 Resp 16 12/16/18 14:58 BP 135/86 12/16/18 14:58 Pulse Ox 99 12/16/18 14:58 - Medical History PMH: Anxiety, Asthma, HTN, Hypercholesterolemia, Kidney Stones, Mitral Valve Prolapse, Chronic Kidney Disease Surgical History: CABG, Coronary Stent Family History: States: Unknown Family Hx - Social History Hx Tobacco Use: No Hx Alcohol Use: No Hx Substance Use: No - Immunization History Hx Tetanus Toxoid Vaccination: Yes Hx Influenza Vaccination: Yes Hx Pneumococcal Vaccination: Yes ED Course And Treatment O2 Sat by Pulse Oximetry: 99 Disposition Counseled Patient/Family Regarding: Diagnosis, Need For Followup, Rx Given - Disposition Referrals: [facility] at [facility] [Outside] Disposition: HOME/ ROUTINE Disposition Time: 16:26 Condition: STABLE Additional Instructions: Continue Tessalon Perles three times a day for cough Start Augmentin twice a day for 7 days Follow up with PMD/ clinic in 1-2 days Return to ED if symptoms worsen Prescriptions: Amoxicillin/Clavulanate [Augmentin 875 MG-125 MG] 1 tab PO BID #14 tab Benzonatate [Tessalon Perles] 100 mg PO TID #30 sgl Instructions: Bacterial Upper Respiratory Infection, Adult (DC), Sore Throat, Adult (DC) - Clinical Impression Clinical Impression: Cough, Pharyngitis
[2018-12-16] MEDS ORDERED: Amoxicillin-Clav 875-125 mg Tab PO STA (16:33)
[2018-12-16] MEDS ORDERED: Amoxicillin-Clav 875-125 mg Tab PO ONE (16:52)
== END 2018-12-16 16:52 | disposition home or self-care (01) ==
LOC: C.ER 14:52
DX: J02.9 Acute pharyngitis, unspecified (principal); R05 Cough; E78.00 Pure hypercholesterolemia, unspecified; I12.9 Hypertensive chronic kidney disease with stage 1 through stage 4 chronic kidney disease, or unspecified chronic kidney disease; N18.9 Chronic kidney disease, unspecified

== ENCOUNTER 2018-12-19 18:31 | Emergency (ER) | payer MEDICAID ==
[2018-12-19 18:32] VITALS: BMI 27.3
[2018-12-19 18:49] VITALS: RESP 18; O2SAT 98
--- NOTE | 2018-12-19 20:31 | C.PDOC ---
History Of Present Illness 58 year old male presents to the ED requesting to have his Coumadin levels checked. Patient reports feeling lightheaded because he was feeling worried. Contrary to triage patient denies chest pain. Patient denies fever, chills, nausea, vomit, dizziness, visual changes, SOB, palpitations, rash, injury, fall, trauma, weakness, numbness. Time Seen by Provider: 12/19/18 20:30 Chief Complaint (Nursing): Dizziness/Lightheaded History Per: Patient History/Exam Limitations: no limitations Onset/Duration Of Symptoms: Hrs Current Symptoms Are (Timing): Still Present Activity At Onset Of Symptoms: Standing Associated Symptoms Preceding Syncopal Episode: Lightheadedness Seizure Or Post-ictal Symptoms: None Fall Associated With With Symptoms: No Severity: None Recent travel outside of the [place]: No Additional History Per: Patient Past Medical History Reviewed: Historical Data, Nursing Documentation, Vital Signs Vital Signs: Last Vital Signs Temp 98.3 F 12/19/18 18:42 Pulse 76 12/19/18 18:42 Resp 18 12/19/18 18:42 BP 136/91 H 12/19/18 18:42 Pulse Ox 98 12/19/18 18:42 - Medical History PMH: Anxiety, Asthma, HTN, Hypercholesterolemia, Kidney Stones, Mitral Valve Prolapse, Chronic Kidney Disease Surgical History: CABG, Coronary Stent Family History: States: Unknown Family Hx - Social History Hx Tobacco Use: No Hx Alcohol Use: No Hx Substance Use: No - Immunization History Hx Tetanus Toxoid Vaccination: Yes Hx Influenza Vaccination: Yes Hx Pneumococcal Vaccination: Yes Review Of Systems Constitutional: Negative for: Fever, Chills Eyes: Negative for: Vision Change Cardiovascular: Negative for: Chest Pain Respiratory: Negative for: Shortness of Breath Gastrointestinal: Negative for: Nausea, Vomiting, Abdominal Pain Skin: Negative for: Rash Neurological: Negative for: Weakness, Numbness, Headache, Dizziness Physical Exam - Physical Exam Appears: Non-toxic, No Acute Distress Skin: Warm, Dry Head: Normacephalic Eye(s): bilateral: Normal Inspection, PERRL, EOMI Neck: Supple Chest: Symmetrical Cardiovascular: Rhythm Regular Respiratory: No Rales, No Rhonchi, No Wheezing Gastrointestinal/Abdominal: Soft, No Tenderness, No Guarding, No Rebound Extremity: Bilateral: Atraumatic, Normal Color And Temperature, Normal ROM Neurological/Psych: Oriented x3, Normal Speech, Normal Cognition Gait: Steady ED Course And Treatment - Laboratory Results Result Diagrams: 12/19/18 21:15 12/19/18 21:15 ECG: Interpreted By Me, Viewed By Me ECG Rhythm: Sinus Rhythm (65), R BBB, Nonspecific Changes O2 Sat by Pulse Oximetry: 98 (On RA) Pulse Ox Interpretation: Normal - Radiology CXR: Interpreted by Me, Viewed By Me CXR Interpretation: Yes: Other (cabg unchanged from 12/16/18). No: Infiltrates, Fracture, Pnemothorax Progress Note: Plan: - EKG. Pt is cp free, and wants to go home Reevaluation Time: 22:02 Reassessment Condition: Improved Medical Decision Making Medical Decision Making: I considered the following diagnoses: acute coronary syndrome, pulmonary embolism, lower respiratory infection, aortic dissection/aneurysm, pneumothorax, pericarditis, esophagitis/GERD, zoster and esophageal rupture but found them to be unlikely based on the history, physical exam, and diagnostics. My conclusions regarding the unlikely diagnoses were based on: the absence of significant EKG abnormalities, the lack of suggestive x-ray findings, the absence of significant abnormalities on cardiac monitoring, the absence of asymmetric pulses. Pt is chest pain free and wants to gohome. Will follow up with his doctor. he now states that he didt have any chest pain and just wanted his blood work checked Upon provider reevaluation patient is feeling better, is medically stable, and requires no further treatment in the ED at this time. Patient will be discharged home . Counseling was provided and all questions were answered regarding diagnosis and need for follow up with the referred clinic. There is agreement to discharge plan. Return if symptoms persist or worsen. Disposition Counseled Patient/Family Regarding: Studies Performed, Diagnosis, Need For F ollowup - Disposition Disposition: HOME/ ROUTINE Disposition Time: 20:30 Condition: FAIR Additional Instructions: Please follow up with your doctor Instructions: Chest Pain (DC) Forms: [employer] (Guinean) - Clinical Impression Clinical Impression: Chest pain - Scribe Statement The provider has reviewed the documentation as recorded by the Scribe Werner Lambert All medical record entries made by the Scribe were at my direction and personally dictated by me. I have reviewed the chart and agree that the record accurately reflects my personal performance of the history, physical exam, medical decision making, and the department course for this patient. I have also personally directed, reviewed, and agree with the discharge instructions and disposition.
[2018-12-19] MEDS ORDERED: Aspirin 325 mg EC Tablets PO STA (21:12)
[2018-12-19 21:21] LABS: BASO % 0.6 % (0.0-2.0); EOS # 0.1 K/uL (0.0-0.7); EOS % 2.2 % (0.0-4.0); HEMOGLOBIN 13.2 g/dL (12.0-18.0); LYMPH # 1.6 K/uL (1.0-4.3); LYMPH % 27.9 % (20.0-40.0); MEAN CELL VOLUME 89.6 fL (80.0-94.0); MEAN CORPUSCULAR HEMOGLOBIN 29.8 pg (27.0-31.0); MEAN CORPUSCULAR HGB CONC 33.3 g/dL (33.0-37.0); MEAN PLATELET VOLUME 8.3 fL (7.2-11.7); MONO # 0.5 K/uL (0.0-0.8); MONO % 8.8 % (0.0-10.0); NEUT # 3.6 K/uL (1.8-7.0); NEUT % 60.5 % (50.0-75.0); NRBC % 0.1 % (0.0-2.0); RBC 4.44 Mil/uL (4.40-5.90); RED CELL DISTRIBUTION WIDTH 14.6 % (11.5-14.5); WHITE BLOOD COUNT 5.9 K/uL (4.8-10.8)
[2018-12-19 21:28] LABS: INR 2.8; PROTHROMBIN TIME 30.6 SECONDS (9.7-12.2)
[2018-12-19 21:35] LABS: ALB/GLOB RATIO 1.7 (1.0-2.1); ALBUMIN 4.3 g/dL (3.5-5.0); ALT/SGPT 30 U/L (21-72); AST/SGOT 35 U/L (17-59); BLOOD UREA NITROGEN 17 mg/dL (9-20); GFR NON-AFRICAN AMERICAN 57; LIPASE 122 U/L (23-300)
[2018-12-19 22:21] VITALS: BP 141/91; PULSE 71; TEMP 98.5
--- NOTE | 2018-12-20 08:39 | RAD ---
Date of service: 12/19/2018 PROCEDURE: CHEST RADIOGRAPH, 1 VIEW HISTORY: chest pain COMPARISON: 12/16/2018 FINDINGS: LUNGS: No consolidation. Lung volumes shallow. Mild pulmonary venous congestion suggested. PLEURA: No pneumothorax or significant appearing pleural effusion. The increased soft tissue density over left costophrenic angle may be summation of soft tissues or left inferolateral pleural thickening. Conceivably this was not a upright study, some layering small left pleural fluid could simulate this. CARDIOVASCULAR: There is presence of aortic atherosclerotic calcification on x-ray. Minimal cardiomegaly. Midline sternotomy. Mild pulmonary venous congestion suggested. OSSEOUS STRUCTURES: Midline sternotomy. Thoracic spondylosis. VISUALIZED UPPER ABDOMEN: Normal. OTHER FINDINGS: None. IMPRESSION: Pulmonary venous congestion as above. Midline sternotomy. Other findings as above.
--- NOTE | 2018-12-20 18:54 | CARD ---
APPROVED REPORT Date of service: 12/19/2018 EKG Measurement Heart [id number] [place] [id number] <Conclusion> Normal sinus rhythm Right bundle branch block Possible Inferior infarct, age undetermined Anterolateral infarct, age undetermined Abnormal ECG
== END 2018-12-19 22:11 | disposition home or self-care (01) ==
LOC: C.ER 18:31
DX: R07.9 Chest pain, unspecified (principal)